=== PATIENT | female | born 1980 | race Hispanic/Latino ===

== ENCOUNTER 2019-11-17 12:00 | Inpatient (IN) ==
[2019-11-17] MEDS ORDERED: AMBIEN PO PRN (12:18)
[2019-11-17] MEDS ORDERED: PEPCID IV PRN (12:18)
[2019-11-17] MEDS ORDERED: TYLENOL PO PRN (12:18)
[2019-11-17] MEDS ORDERED: AMPICILLIN 2 GM in NS 100 ML IV ONE ×4 (12:18)
[2019-11-17] MEDS ORDERED: ZOFRAN IV PRN (12:18)
[2019-11-17] MEDS ORDERED: BRETHINE SUBQ PRN (12:18)
[2019-11-17] MEDS ORDERED: LR 1,000 ML IV ONE (12:18)
[2019-11-17] MEDS ORDERED: PEPCID PO ONE (12:18)
[2019-11-17] MEDS ORDERED: PEPCID PO PRN (12:18)
[2019-11-17] MEDS ORDERED: LR 500 ML IV ONE (12:18)
[2019-11-17] MEDS ORDERED: REGLAN PO ONE (12:18)
[2019-11-17] MEDS ORDERED: STADOL IV PRN ×2 (12:18)
[2019-11-17] MEDS ORDERED: CYTOTEC VAG ONE (12:18)
[2019-11-17] MEDS ORDERED: KEFZOL 1 GM/D5W 1 GM/50 ML IVPB IV PRN (12:18)
[2019-11-17] MEDS ORDERED: PITOCIN 30 UNITS/NS 30 UNIT/500 ML IV.SOLN IV SCH (12:30)
[2019-11-17 13:23] LABS: URINE SOURCE VOIDED
[2019-11-17 13:29] LABS: BASO# 0.03 X1000 (0.0-0.2); BASO% 0.4 % (0.0-0.8); EOS# 0.13 X1000 (0.0-0.7); EOS% 1.6 % (0.0-10.0); HEMATOCRIT 35.5 % (37.0-47.0); HEMOGLOBIN 11.7 g/dL (12.0-16.0); IMM GRAN# 0.08 X1000 (0.0-0.04); LYMPH# 1.73 X1000 (1.2-3.4); LYMPH% 21.8 % (20.5-51.1); MCH 30.4 PG (27-31); MCV 92.2 FL (81-99); MONO# 0.48 X1000 (0.11-0.59); MPV 13.5 FL (7.4-10.4); NEUT% 69.2 % (42.2-75.2); PLT 211 X1000 (130-400); RBC 3.85 XMIL (4.2-5.4); RDW 13.8 % (11.5-14.5); WBC 7.95 X1000 (4.8-10.8)
[2019-11-17 13:37] LABS: BILIRUBIN URINE NEGATIVE (NEGATIVE); BLOOD URINE NEGATIVE (NEGATIVE); COLOR YELLOW; GLUCOSE URINE NEGATIVE (NEGATIVE); KETONE URINE NEGATIVE (NEGATIVE); LEUKOCYTES URINE NEGATIVE (NEGATIVE); NITRITE URINE NEGATIVE (NEGATIVE); PROTEIN URINE 30 mg/dL (NEGATIVE); SP GRAVITY URINE 1.026; TURBIDITY URINE CLEAR (CLEAR); UROBILINOGEN URINE 3 mg/dL (NORMAL)
[2019-11-17 13:40] LABS: AGAP 15; ALBUMIN 3.1 g/dL (3.5-5.0); ALKALINE PHOSPHATASE 256 U/L (32-104); BUN 13 mg/dL (8-22); CALCIUM 9.3 mg/dL (8.8-10.2); CHLORIDE 100 mmol/L (98-107); COSMO 265; CREATININE 0.5 mg/dL (0.5-0.9); ESTIMATED GFR > 60; GLUCOSE 75 mg/dL (70-104); GOT 65 U/L (10-30); GPT 98 U/L (10-36); POTASSIUM 4.1 mmol/L (3.5-5.1); SODIUM 133 mmol/L (136-145); TCO2 18 mmol/L (25-35); TOTAL BILIRUBIN 0.66 mg/dL (0.20-1.00); TOTAL PROTEIN 6.3 g/dL (6.3-8.3)
[2019-11-17 13:47] LABS: UR AMPHETAMINES QUAL NONE DETECTED (NONE DETECT); UR BARBITUATES QUAL NONE DETECTED (NONE DETECT); UR BENZODIAZEPIN QUAL NONE DETECTED (NONE DETECT); UR CANNABINOIDS QUAL NONE DETECTED (NONE DETECT); UR COCAINE QUAL NONE DETECTED (NONE DETECT); UR METHADONE QUAL NONE DETECTED (NONE DETECT); UR OPIATES QUAL NONE DETECTED (NONE DETECT); UR OXYCODONE QUAL NONE DETECTED (NONE DETECT); UR PCP QUAL NONE DETECTED (NONE DETECT)
[2019-11-17 13:47] LABS: INR 0.89; PROTIME 12.1 Seconds (11.0-16.0)
[2019-11-17 13:48] LABS: PTT 30.4 Seconds (22.3-41.8)
[2019-11-17] MEDS: STADOL IV PRN ×3 (15:10→23:53)
[2019-11-17] MEDS ORDERED: AMPICILLIN 1 GM in NS 50 ML IV SCH (16:21)
[2019-11-17] MEDS: AMPICILLIN 1 GM in NS 50 ML IV SCH ×2 (17:01→20:56)
[2019-11-17] MEDS: CYTOTEC VAG SCH ×2 (17:45→21:40)
--- NOTE | 2019-11-17 20:22 | HISTORY AND PHYSICAL ---
HISTORY OF PRESENT ILLNESS: This is a 39-year-old G3, P2-0-0-2 at 37 weeks and 2 days with A2 gestational diabetes, suspected intrahepatic cholestasis of , advanced maternal age, history of LEEP, and late care, who presents for medical induction of labor for high suspicion of intrahepatic cholestasis of and A2 gestational diabetes. She presented to clinic yesterday with complaint of intense itching on her palms and her soles and was sent to the hospital for lab work and NST. NST was reactive;. However, her liver enzymes were elevated. She also had a right upper quadrant ultrasound that showed hepatic steatosis, but no gallbladder pathology. Her symptoms and laboratory findings are consistent with intrahepatic cholestasis of . Bile acids are still pending and can take approximately 3 days to return. [facility], Dr. Mcgarry, was consulted this a.m. regarding suspicion for ICP, and she recommended delivery. Discussed medical induction of labor with the patient, given high suspicion for intrahepatic cholestasis of and A2 gestational diabetes. She agrees to proceed. This has been complicated by A2 gestational diabetes that was diagnosed later in due to the patient's inability to have lab work completed. She also had a difficult time obtaining a glucometer to check her blood sugars regularly. She was referred to [facility], and is currently on metformin 1000 mg b.i.d. The last growth scan on November 11 had a growth of 7 pounds 14 ounces, which is considered large for gestational age. has also been complicated by GBS bacteria, bilirubin nonimmune status, ASCUS high-risk HPV Pap during , and history of LEEP. The patient elected to have a colposcopy performed at her visit regarding the ASCUS high-risk HPV Pap. She is dated by a 23-week ultrasound with an estimated due date of 12/06/2019. OBSTETRIC HISTORY: G1 equaled spontaneous vaginal delivery at 40 weeks gestation, female, 7 pounds delivery in [place], [place] (2002). G2: Spontaneous vaginal delivery at 40 weeks, female, 7 pounds 14 ounces. Denies complications, delivered in [place], [place] (2005). G3 is current . GYNECOLOGIC HISTORY: She denies any history of sexually transmitted infections. She had a Pap smear in 2019 during that was ASCUS and high-risk HPV. Per health department records, she also has a history of a LEEP procedure performed. Menarche was at age 14. PAST MEDICAL HISTORY: Advanced maternal age, A2 gestational diabetes, ICP, late to care. MEDICATIONS: Metformin 1000 mg p.o. b.i.d., vitamin p.o. daily. ALLERGIES: No known drug allergies. SOCIAL HISTORY: She denies any tobacco, alcohol, or drug use. She is Lithuanian-speaking only and requires a human resources professional during her visit. FAMILY HISTORY: Denies. PHYSICAL EXAMINATION: VITAL SIGNS: Temperature 97.4 degrees, heart rate 66, blood pressure 130/75, oxygen saturation 99% on room air. Respiratory rate 18. GENERAL APPEARANCE: Appears well, alert, no apparent distress. CARDIOVASCULAR: Regular rate and rhythm. RESPIRATORY: No respiratory distress. Clear to auscultation bilaterally. ABDOMEN: Soft, gravid, nontender. EXTREMITIES: Normal range of motion. Nontender. Mild pedal edema. : Sterile vaginal exam: 30 percent effaced/minus 3 position, soft, midposition, Williamson score of 4. Bedside ultrasound: Vertex presentation on 11/17. Estimated weight 3700 grams. LABORATORY DATA: White blood cell count 7.9, hemoglobin 11.7, hematocrit 35.5, platelets 211. Sodium 133, potassium 4.1, chloride 100.. CO2 is 18, BUN 13, creatinine 0.5, blood sugar 75. AST 65, ALT 98. PT 12.1, INR 0.9, PTT 30.4, fibrinogen 674. Urine drug screen negative. Urinalysis: Shows 3+ urobilinogen, 1+ protein. lab work: Blood type O positive, negative antibody screen. Rubella non immune, hepatitis B negative, hepatitis C negative, HIV negative, RPR negative. Urine culture, GBS, gonorrhea/chlamydia negative. Pap smear ASCUS with high-risk HPV in 2019. ASSESSMENT/PLAN: 39-year-old G3, P2-0-0-2 at 37 weeks and 2 days with A2 gestational diabetes, high suspicion for intrahepatic cholestasis of , advanced maternal age, Group B Strep bacteria, rubella nonimmune status, history of ASCUS high-risk HPV Pap in 2019, and history of LEEP procedure. 1. Will admit to Labor and Delivery and plan for medical induction secondary to intrahepatic cholestasis of and A2 gestational diabetes. At last [facility] scan, was noted to be large for gestational age with a growth of 7 pounds 14 ounces on November 11. Discussed induction on an unfavorable cervix may increase the risk of . Cervical exam with a Williamson score of 4. Discussed increased risk of shoulder dystocia given large-for- gestational-age and her A2 gestational diabetes. We will plan for cervical ripening with vaginal Cytotec. 2. We will check CBC, CMP, coags, and urinary drug screen on arrival. 3. Group B Strep bacteria. Will plan for Group B Strep prophylaxis with ampicillin. 4. Estimated weight 3700 grams, vertex presentation on ultrasound. Anticipate vaginal delivery. 5. Continuous external monitoring and tocography. Patient may have epidural if she desires. 6. She desires a bilateral tubal ligation if section is indicated. She has been counseled on the permanence and irreversibility of this procedure and that it means no more children. She agrees to proceed. 7. We will plan the hold metformin and check blood glucose every 4 hours.
[2019-11-18] MEDS ORDERED: MINERAL OIL TOP PRN (00:17)
[2019-11-18] MEDS ORDERED: XYLOCAINE-MPF 1% INJ PRN (00:17)
[2019-11-18] MEDS: AMPICILLIN 1 GM in NS 50 ML IV SCH ×5 (00:30→16:26)
[2019-11-18 02:00] LABS: HEMATOCRIT 35.7 % (37.0-47.0); HEMOGLOBIN 11.6 g/dL (12.0-16.0); LYMPH% 15.3 % (20.5-51.1); MCH 30.2 PG (27-31); MCHC 32.5 g/dL (33-37); MPV 12.9 FL (7.4-10.4); NEUT% 78.3 % (42.2-75.2); PLT 187 X1000 (130-400); RBC 3.84 XMIL (4.2-5.4); RDW 13.8 % (11.5-14.5); WBC 10.62 X1000 (4.8-10.8)
[2019-11-18 02:00] LABS: PROTEIN CREAT RATIO 0.3
[2019-11-18 02:01] LABS: BASO% 0.3 % (0.0-0.8); EOS% 0.5 % (0.0-10.0); IMM GRAN% 0.7 % (0.0-0.5); MONO% 4.9 % (1.7-9.3); NEUT# 8.33 X1000 (1.4-6.5)
[2019-11-18 02:02] LABS: AGAP 17; CHLORIDE 100 mmol/L (98-107); LDH 161 U/L (135-214); SODIUM 136 mmol/L (136-145); TCO2 19 mmol/L (25-35); URIC ACID 5.8 mg/dL (2.4-5.7)
[2019-11-18 02:03] LABS: ALB/GLOB RATIO 1.3; ALBUMIN 3.2 g/dL (3.5-5.0); ALKALINE PHOSPHATASE 259 U/L (32-104); BUN 12 mg/dL (8-22); CALCIUM 8.6 mg/dL (8.8-10.2); COSMO 271; CREATININE 0.6 mg/dL (0.5-0.9); ESTIMATED GFR > 60; GLUCOSE 79 mg/dL (70-104); TOTAL BILIRUBIN 0.97 mg/dL (0.20-1.00); TOTAL PROTEIN 5.7 g/dL (6.3-8.3)
[2019-11-18] MEDS: LR 1,000 ML IV SCH ×4 (02:03→10:41)
[2019-11-18 02:06] LABS: EOS# 0.05 X1000 (0.0-0.7); GOT 66 U/L (10-30); GPT 100 U/L (10-36); LYMPH# 1.62 X1000 (1.2-3.4); MONO# 0.52 X1000 (0.11-0.59)
[2019-11-18 02:07] LABS: BASO# 0.03 X1000 (0.0-0.2); IMM GRAN# 0.07 X1000 (0.0-0.04)
[2019-11-18] MEDS: CYTOTEC VAG SCH ×3 (02:31→18:24)
[2019-11-18] MEDS: STADOL IV PRN (02:32)
[2019-11-18 04:35] LABS: INR 0.92; PROTIME 12.4 Seconds (11.0-16.0)
[2019-11-18 04:36] LABS: PTT 29.3 Seconds (22.3-41.8)
[2019-11-18 06:20] LABS: BASO# 0.02 X1000 (0.0-0.2); BASO% 0.2 % (0.0-0.8); EOS# 0.03 X1000 (0.0-0.7); EOS% 0.3 % (0.0-10.0); HEMATOCRIT 35.2 % (37.0-47.0); HEMOGLOBIN 11.3 g/dL (12.0-16.0); IMM GRAN# 0.04 X1000 (0.0-0.04); IMM GRAN% 0.3 % (0.0-0.5); LYMPH# 1.43 X1000 (1.2-3.4); LYMPH% 12.3 % (20.5-51.1); MCH 29.8 PG (27-31); MCHC 32.1 g/dL (33-37); MCV 92.9 FL (81-99); MONO# 0.57 X1000 (0.11-0.59); MONO% 4.9 % (1.7-9.3); MPV 12.7 FL (7.4-10.4); NEUT# 9.56 X1000 (1.4-6.5); PLT 170 X1000 (130-400); RBC 3.79 XMIL (4.2-5.4); RDW 13.9 % (11.5-14.5); WBC 11.65 X1000 (4.8-10.8)
[2019-11-18 06:37] LABS: AGAP 17; ALB/GLOB RATIO 0.9; ALBUMIN 2.9 g/dL (3.5-5.0); ALKALINE PHOSPHATASE 241 U/L (32-104); BUN 10 mg/dL (8-22); CALCIUM 8.7 mg/dL (8.8-10.2); CHLORIDE 100 mmol/L (98-107); COSMO 268; CREATININE 0.5 mg/dL (0.5-0.9); ESTIMATED GFR > 60; GLUCOSE 83 mg/dL (70-104); GOT 54 U/L (10-30); GPT 82 U/L (10-36); POTASSIUM 3.6 mmol/L (3.5-5.1); SODIUM 135 mmol/L (136-145); TCO2 18 mmol/L (25-35); URIC ACID 6.2 mg/dL (2.4-5.7)
[2019-11-18] MEDS ORDERED: FENTANYL-BUPIV-NS 500 MCG-0.125% 250 ML EPIDURAL SCH (07:00)
[2019-11-18] MEDS ORDERED: NAROPIN 0.2% INJ ONE (07:00)
--- NOTE | 2019-11-18 07:02 | OB/GYN PROGRESS NOTE ---
- Subjective 39 yo at 37w3d MIOL for ICP with PreE without severe features, A2-GDM, AMA, GBS bacteriuria, ASCUS pap this , Hx LEEP, late to [facility] Patient seen and examined. She is feeling regular contractions and has received several doses of stadol without relief. She is s/p 3 doses of cytotec and now undergoing induction with pitocin. She desires an epidural at this time for pain relief. Overnight BP elevated to mostly 140-150s/80s. PreE labs showed an elevated uric acid, elevated LFTs, and a P:Cr of 0.3. Platelets have been trended since admission and were 211> 187>170 this AM at 0600. Will continue to trend and monitor for signs of PreE with severe features. She denies any headache, vision changes, chest pain, SOB, RUQ pain, N/V. FHT: 140/moderate/+accel/no decel L[place]: Q1-2 min OB Physical Exam Vital Signs - 8 hr 11/18/19 00:00 11/18/19 02:37 11/18/19 04:00 Temperature 96.7 F L 97.4 F L 97.8 F Pulse Rate 58 L 75 64 Respiratory Rate 20 18 18 Blood Pressure 144/84 143/86 127/69 O2 Sat by Pulse Oximetry 99 95 100 - CONSTITUTIONAL General Appearance: appears well, alert, mild distress (secondary to contraction pain) - HEAD, EARS, NOSE, MOUTH & THROAT HENMT: normocephalic/atraumatic - RESPIRATORY Respiratory: lungs clear, normal breath sounds, no respiratory distress - CARDIOVASCULAR Cardiovascular: regular rate, rhythm - GASTROINTESTINAL (ABDOMEN) Abdominal Exam: non tender, soft, other (gravid) - GENITOURINARY Vaginal Exam: /-2, ballotable - MUSCULOSKELETAL Extremity: normal range of motion, pedal edema (mild) DTR: knee (R): 2+ (no clonus), knee (L): 3+ (no clonus) - PSYCHIATRIC Psych/Mental Status: normal mood/affect Active Medications Generic Name Dose Route Start Last Admin Trade Name Freq PRN Reason Stop Dose Admin Acetaminophen 650 mg 11/17/19 12:18 Tylenol PO Q4-6H PRN PRN Headache Butorphanol Tartrate 2 mg 11/17/19 12:18 11/18/19 02:32 Stadol IV 2 mg Q2H PRN PRN Administration Pain (5-10 on Pain Scale) Butorphanol Tartrate 2 mg 11/17/19 12:18 Stadol IV PRN PRN Pain Butorphanol Tartrate 1 mg 11/17/19 12:18 Stadol IV Q2H PRN PRN Pain (1-4 on Pain Scale) Famotidine 20 mg 11/17/19 12:18 Pepcid IV Q12H PRN PRN GI upset or indigestion Famotidine 20 mg 11/17/19 12:18 Pepcid PO Q12H PRN PRN GI upset or indigestion Ampicillin Sodium 1 gm/ Sodium 50 mls @ 100 mls/hr 11/17/19 16:18 11/18/19 05:00 Chloride IV 100 mls/hr Q4H LAILA Administration Cefazolin Sodium/Dextrose 1 gm in 50 mls @ 100 mls/hr 11/17/19 12:18 Kefzol 1 Gm/D5w IV ONCE PRN PRN section Oxytocin/Sodium Chloride 30 unit in 500 mls @ 0 mls/hr 11/17/19 12:30 11/18/19 02:30 Pitocin 30 Units/Ns IV 2 mls/hr .Q0M LAILA Administration As Directed Lactated Ringer's 1,000 mls @ 0 mls/hr 11/18/19 01:15 11/18/19 05:18 Lr IV 125 mls/hr .Q0M LAILA Administration As Directed Fentanyl/Bupivacaine/Sodium Chlor 250 mls @ 0 mls/hr 11/18/19 07:00 Anzkxywc-Byiik-Ln 500 Mcg-0.125% EPIDURAL DIRECTED LAILA As Directed Lidocaine HCl 30 ml 11/18/19 00:17 Xylocaine-Mpf 1% INJ PRN PRN delivery Mineral Oil 30 ml 11/18/19 00:17 Mineral Oil TOP PRN PRN delivery Misoprostol 25 microgm 11/17/19 16:18 11/18/19 05:50 Cytotec VAG 11/18/19 13:46 Not Given Q4H LAILA Ondansetron HCl 4 mg 11/17/19 12:18 Zofran IV PRN PRN Nausea Ropivacaine 20 ml 11/18/19 07:00 Naropin 0.2% INJ 11/18/19 07:01 NOW ONE Terbutaline Sulfate 0.25 mg 11/17/19 12:18 Brethine SUBQ PRN PRN tachysystole/hypertonus Zolpidem Tartrate 10 mg 11/17/19 12:18 Ambien PO HS PRN PRN Sleep Laboratory Results - last 24 hr 11/17/19 11/17/19 11/17/19 00:09 00:09 00:09 WBC Cancelled RBC Cancelled Hgb Cancelled Hct Cancelled MCV Cancelled MCH Cancelled MCHC Cancelled RDW Std Deviation Cancelled Plt Count Cancelled MPV Cancelled Immature Gran % (Auto) Cancelled Neut % (Auto) Cancelled Lymph % (Auto) Cancelled Wayne % (Auto) Cancelled Eos % (Auto) Cancelled Baso % (Auto) Cancelled Immature Gran # (Auto) Cancelled Neut # (Auto) Cancelled Lymph # (Auto) Cancelled Wayne # (Auto) Cancelled Eos # (Auto) Cancelled Baso # (Auto) Cancelled Corrected WBC (Man) Cancelled PT INR PTT (Actin FS) Fibrinogen Sodium Cancelled Potassium Cancelled Chloride Cancelled Carbon Dioxide Cancelled Anion Gap Cancelled BUN Cancelled Creatinine Cancelled Estimated GFR/1.73 m2 Cancelled BUN/Creatinine Ratio Cancelled Glucose Cancelled Calculated Osmolality Cancelled Uric Acid Cancelled Calcium Cancelled Total Bilirubin Cancelled AST Cancelled ALT Cancelled Alkaline Phosphatase Cancelled Ammonia Lactate Dehydrogenase Cancelled Total Protein Cancelled Albumin Cancelled Globulin Cancelled Albumin/Globulin Ratio Cancelled Urine Source Urine Color Urine Turbidity Urine pH Ur Specific [place] Urine Protein Ur Glucose (Stick) Ur Ketones (Stick) Urine Blood Urine Nitrite Urine Bilirubin Urobilinogen Dipstick Urine Leukocytes Ur Random Creatinine U Random Total Protein Protein/Creatinin Ratio Urine Opiates Screen Ur Oxycodone Screen Ur Methadone, Qual Ur Barbiturates Screen Ur Phencyclidine Scrn Ur Amphetamines Screen U Benzodiazepines Scrn Urine Cocaine Screen U Cannabinoids Screen RPR Blood Type Antibody Screen 11/17/19 11/17/19 11/17/19 00:28 12:30 12:30 WBC RBC Hgb Hct MCV MCH MCHC RDW Std Deviation Plt Count MPV Immature Gran % (Auto) Neut % (Auto) Lymph % (Auto) Wayne % (Auto) Eos % (Auto) Baso % (Auto) Immature Gran # (Auto) Neut # (Auto) Lymph # (Auto) Wayne # (Auto) Eos # (Auto) Baso # (Auto) Corrected WBC (Man) PT INR PTT (Actin FS) Fibrinogen Sodium Potassium Chloride Carbon Dioxide Anion Gap BUN Creatinine Estimated GFR/1.73 m2 BUN/Creatinine Ratio Glucose Calculated Osmolality Uric Acid Calcium Total Bilirubin AST ALT Alkaline Phosphatase Ammonia Lactate Dehydrogenase Total Protein Albumin Globulin Albumin/Globulin Ratio Urine Source VOIDED Urine Color YELLOW Urine Turbidity CLEAR Urine pH 6.0 Ur Specific [place] 1.026 Urine Protein 30 A Ur Glucose (Stick) NEGATIVE Ur Ketones (Stick) NEGATIVE Urine Blood NEGATIVE Urine Nitrite NEGATIVE Urine Bilirubin NEGATIVE Urobilinogen Dipstick 3 A Urine Leukocytes NEGATIVE Ur Random Creatinine Cancelled U Random Total Protein Cancelled Protein/Creatinin Ratio Cancelled Urine Opiates Screen NONE DETECTED Ur Oxycodone Screen NONE DETECTED Ur Methadone, Qual NONE DETECTED Ur Barbiturates Screen NONE DETECTED Ur Phencyclidine Scrn NONE DETECTED Ur Amphetamines Screen NONE DETECTED U Benzodiazepines Scrn NONE DETECTED Urine Cocaine Screen NONE DETECTED U Cannabinoids Screen NONE DETECTED RPR Blood Type Antibody Screen 11/17/19 11/17/19 11/17/19 12:58 12:58 12:58 WBC 7.95 RBC 3.85 L Hgb 11.7 L Hct 35.5 L MCV 92.2 MCH 30.4 MCHC 33.0 RDW Std Deviation 13.8 Plt Count 211 MPV 13.5 H Immature Gran % (Auto) 1.0 H Neut % (Auto) 69.2 Lymph % (Auto) 21.8 Wayne % (Auto) 6.0 Eos % (Auto) 1.6 Baso % (Auto) 0.4 Immature Gran # (Auto) 0.08 H Neut # (Auto) 5.50 Lymph # (Auto) 1.73 Wayne # (Auto) 0.48 Eos # (Auto) 0.13 Baso # (Auto) 0.03 Corrected WBC (Man) PT INR PTT (Actin FS) Fibrinogen Sodium Potassium Chloride Carbon Dioxide Anion Gap BUN Creatinine Estimated GFR/1.73 m2 BUN/Creatinine Ratio Glucose Calculated Osmolality Uric Acid Calcium Total Bilirubin AST ALT Alkaline Phosphatase Ammonia Lactate Dehydrogenase Total Protein Albumin Globulin Albumin/Globulin Ratio Urine Source Urine Color Urine Turbidity Urine pH Ur Specific [place] Urine Protein Ur Glucose (Stick) Ur Ketones (Stick) Urine Blood Urine Nitrite Urine Bilirubin Urobilinogen Dipstick Urine Leukocytes Ur Random Creatinine U Random Total Protein Protein/Creatinin Ratio Urine Opiates Screen Ur Oxycodone Screen Ur Methadone, Qual Ur Barbiturates Screen Ur Phencyclidine Scrn Ur Amphetamines Screen U Benzodiazepines Scrn Urine Cocaine Screen U Cannabinoids Screen RPR NON-REACTIVE Blood Type O POSITIVE Antibody Screen NEGATIVE 11/17/19 11/17/19 11/18/19 12:58 12:58 00:09 WBC 10.62 RBC 3.84 L Hgb 11.6 L Hct 35.7 L MCV 93.0 MCH 30.2 MCHC 32.5 L RDW Std Deviation 13.8 Plt Count 187 MPV 12.9 H Immature Gran % (Auto) 0.7 H Neut % (Auto) 78.3 H Lymph % (Auto) 15.3 L Wayne % (Auto) 4.9 Eos % (Auto) 0.5 Baso % (Auto) 0.3 Immature Gran # (Auto) 0.07 H Neut # (Auto) 8.33 H Lymph # (Auto) 1.62 Wayne # (Auto) 0.52 Eos # (Auto) 0.05 Baso # (Auto) 0.03 Corrected WBC (Man) PT 12.1 INR 0.89 PTT (Actin FS) 30.4 Fibrinogen 674.0 H Sodium 133 L Potassium 4.1 Chloride 100 Carbon Dioxide 18 L Anion Gap 15 BUN 13 Creatinine 0.5 Estimated GFR/1.73 m2 > 60 BUN/Creatinine Ratio 26 Glucose 75 Calculated Osmolality 265 Uric Acid Calcium 9.3 Total Bilirubin 0.66 AST 65 H ALT 98 H Alkaline Phosphatase 256 H Ammonia Lactate Dehydrogenase Total Protein 6.3 Albumin 3.1 L Globulin 3.2 Albumin/Globulin Ratio 1.0 Urine Source Urine Color Urine Turbidity Urine pH Ur Specific [place] Urine Protein Ur Glucose (Stick) Ur Ketones (Stick) Urine Blood Urine Nitrite Urine Bilirubin Urobilinogen Dipstick Urine Leukocytes Ur Random Creatinine U Random Total Protein Protein/Creatinin Ratio Urine Opiates Screen Ur Oxycodone Screen Ur Methadone, Qual Ur Barbiturates Screen Ur Phencyclidine Scrn Ur Amphetamines Screen U Benzodiazepines Scrn Urine Cocaine Screen U Cannabinoids Screen RPR Blood Type Antibody Screen 11/18/19 11/18/19 11/18/19 00:09 00:28 03:14 WBC RBC Hgb Hct MCV MCH MCHC RDW Std Deviation Plt Count MPV Immature Gran % (Auto) Neut % (Auto) Lymph % (Auto) Wayne % (Auto) Eos % (Auto) Baso % (Auto) Immature Gran # (Auto) Neut # (Auto) Lymph # (Auto) Wayne # (Auto) Eos # (Auto) Baso # (Auto) Corrected WBC (Man) PT INR PTT (Actin FS) Fibrinogen Sodium 136 Potassium 4.0 Chloride 100 Carbon Dioxide 19 L Anion Gap 17 BUN 12 Creatinine 0.6 Estimated GFR/1.73 m2 > 60 BUN/Creatinine Ratio 20 Glucose 79 Calculated Osmolality 271 Uric Acid 5.8 H Calcium 8.6 L Total Bilirubin 0.97 AST 66 H ALT 100 H Alkaline Phosphatase 259 H Ammonia 28 Lactate Dehydrogenase 161 Total Protein 5.7 L Albumin 3.2 L Globulin 2.5 Albumin/Globulin Ratio 1.3 Urine Source Urine Color Urine Turbidity Urine pH Ur Specific [place] Urine Protein Ur Glucose (Stick) Ur Ketones (Stick) Urine Blood Urine Nitrite Urine Bilirubin Urobilinogen Dipstick Urine Leukocytes Ur Random Creatinine 80.0 H U Random Total Protein 26.0 Protein/Creatinin Ratio 0.3 Urine Opiates Screen Ur Oxycodone Screen Ur Methadone, Qual Ur Barbiturates Screen Ur Phencyclidine Scrn Ur Amphetamines Screen U Benzodiazepines Scrn Urine Cocaine Screen U Cannabinoids Screen RPR Blood Type Antibody Screen 11/18/19 11/18/19 11/18/19 03:14 05:52 05:52 WBC 11.65 H RBC 3.79 L Hgb 11.3 L Hct 35.2 L MCV 92.9 MCH 29.8 MCHC 32.1 L RDW Std Deviation 13.9 Plt Count 170 MPV 12.7 H Immature Gran % (Auto) 0.3 Neut % (Auto) 82.0 H Lymph % (Auto) 12.3 L Wayne % (Auto) 4.9 Eos % (Auto) 0.3 Baso % (Auto) 0.2 Immature Gran # (Auto) 0.04 Neut # (Auto) 9.56 H Lymph # (Auto) 1.43 Wayne # (Auto) 0.57 Eos # (Auto) 0.03 Baso # (Auto) 0.02 Corrected WBC (Man) PT 12.4 INR 0.92 PTT (Actin FS) 29.3 Fibrinogen 592.0 H Sodium 135 L Potassium 3.6 Chloride 100 Carbon Dioxide 18 L Anion Gap 17 BUN 10 Creatinine 0.5 Estimated GFR/1.73 m2 > 60 BUN/Creatinine Ratio 20 Glucose 83 Calculated Osmolality 268 Uric Acid 6.2 H Calcium 8.7 L Total Bilirubin 1.10 H AST 54 H ALT 82 H Alkaline Phosphatase 241 H Ammonia Lactate Dehydrogenase Total Protein 6.0 L Albumin 2.9 L Globulin 3.1 Albumin/Globulin Ratio 0.9 Urine Source Urine Color Urine Turbidity Urine pH Ur Specific [place] Urine Protein Ur Glucose (Stick) Ur Ketones (Stick) Urine Blood Urine Nitrite Urine Bilirubin Urobilinogen Dipstick Urine Leukocytes Ur Random Creatinine U Random Total Protein Protein/Creatinin Ratio Urine Opiates Screen Ur Oxycodone Screen Ur Methadone, Qual Ur Barbiturates Screen Ur Phencyclidine Scrn Ur Amphetamines Screen U Benzodiazepines Scrn Urine Cocaine Screen U Cannabinoids Screen RPR Blood Type Antibody Screen OB Assessment & Plan (1) Intrahepatic cholestasis of in third trimester Status: Acute Plan: 39 yo at 37w3d MIOL for ICP with PreE without severe features, A2-GDM, AMA,GBS bacteriuria, ASCUS pap this , Hx LEEP, late to [facility] 1. MF status reassuring 2. Patient desires epidural at this time 3. Will attempt AROM when station lower. SVE: 5/80/-2 4. Continue to trend PreE labs for dropping platelets 5. Monitor BP closely for symptoms of PreE with severe features 6. Ampicillin for GBS bacteriuria
[2019-11-18] MEDS ORDERED: EPHEDRINE IV ONE ×2 (08:13→08:32)
[2019-11-18] MEDS ORDERED: SODIUM CHLORIDE 0.9% 10 ML ONE (08:15)
--- NOTE | 2019-11-18 10:09 | OB/GYN PROGRESS NOTE ---
- Subjective Called to patient's room due to prolonged decel during pitocin induction. FHT prior to decel 170/minimal variability/no accel/recurrent decel. Pitocin turned off, maternal re-positioning performed, and maternal O2 placed. Decel resolved with baseline of 160/moderate variability/no accel/recurrent decel. AROM performed to try and resolve this pattern. AROM performed at 0951 with clear fluid and head well applied to cervix. SVE /-2. FHT resolved with baseline 160/minimal variability/no accel/no decel. [place] Q2 minutes. Discussed FHT with patient via lang interpreter phone. Discussed if baby shows further signs of distress, will recommend c/s. Discussed R/B/A to . Risks include but are not limited to bleeding, infection, damage to surrounding organs, possible need for blood transfusion, possible need for re-operation, increased risk of VTE and even . She voiced understanding. Also discussed if c/s recommended, she desires BTL for pp contraception. This has been extensively discussed during clinic visits and she understands that it is permanent, irreversible, and means no more children. Consent signed. OB Physical Exam Vital Signs - 8 hr 11/18/19 02:37 11/18/19 04:00 11/18/19 08:00 Temperature 97.4 F L 97.8 F 97.7 F Pulse Rate 75 64 70 Respiratory Rate 18 18 18 Blood Pressure 143/86 127/69 123/74 O2 Sat by Pulse Oximetry 95 100 99 - CONSTITUTIONAL General Appearance: appears well, alert, no apparent distress - RESPIRATORY Respiratory: no respiratory distress - CARDIOVASCULAR Cardiovascular: regular rate, rhythm - GASTROINTESTINAL (ABDOMEN) Abdominal Exam: non tender, soft, other (gravid) - GENITOURINARY Vaginal Exam: /-2 - PSYCHIATRIC Psych/Mental Status: normal mood/affect Active Medications Generic Name Dose Route Start Last Admin Trade Name Freq PRN Reason Stop Dose Admin Acetaminophen 650 mg 11/17/19 12:18 Tylenol PO Q4-6H PRN PRN Headache Butorphanol Tartrate 2 mg 11/17/19 12:18 11/18/19 02:32 Stadol IV 2 mg Q2H PRN PRN Administration Pain (5-10 on Pain Scale) Butorphanol Tartrate 2 mg 11/17/19 12:18 Stadol IV PRN PRN Pain Butorphanol Tartrate 1 mg 11/17/19 12:18 Stadol IV Q2H PRN PRN Pain (1-4 on Pain Scale) Famotidine 20 mg 11/17/19 12:18 Pepcid IV Q12H PRN PRN GI upset or indigestion Famotidine 20 mg 11/17/19 12:18 Pepcid PO Q12H PRN PRN GI upset or indigestion Ampicillin Sodium 1 gm/ Sodium 50 mls @ 100 mls/hr 11/17/19 16:18 11/18/19 08:10 Chloride IV 100 mls/hr Q4H LAILA Administration Cefazolin Sodium/Dextrose 1 gm in 50 mls @ 100 mls/hr 11/17/19 12:18 Kefzol 1 Gm/D5w IV ONCE PRN PRN section Oxytocin/Sodium Chloride 30 unit in 500 mls @ 0 mls/hr 11/17/19 12:30 11/18/19 02:30 Pitocin 30 Units/Ns IV 2 mls/hr .Q0M LAILA Administration As Directed Lactated Ringer's 1,000 mls @ 0 mls/hr 11/18/19 01:15 11/18/19 07:21 Lr IV 125 mls/hr .Q0M LAILA Administration As Directed Fentanyl/Bupivacaine/Sodium Chlor 250 mls @ 0 mls/hr 11/18/19 07:00 11/18/19 07:55 Fwbsoghh-Upggv-Ms 500 Mcg-0.125% EPIDURAL 10 mls/hr DIRECTED LAILA Administration As Directed Lidocaine HCl 30 ml 11/18/19 00:17 Xylocaine-Mpf 1% INJ PRN PRN delivery Mineral Oil 30 ml 11/18/19 00:17 Mineral Oil TOP PRN PRN delivery Misoprostol 25 microgm 11/17/19 16:18 11/18/19 05:50 Cytotec VAG 11/18/19 13:46 Not Given Q4H LAILA Ondansetron HCl 4 mg 11/17/19 12:18 Zofran IV PRN PRN Nausea Terbutaline Sulfate 0.25 mg 11/17/19 12:18 Brethine SUBQ PRN PRN tachysystole/hypertonus Zolpidem Tartrate 10 mg 11/17/19 12:18 Ambien PO HS PRN PRN Sleep Laboratory Results - last 24 hr 11/17/19 11/17/19 11/17/19 00:09 00:09 00:09 WBC Cancelled RBC Cancelled Hgb Cancelled Hct Cancelled MCV Cancelled MCH Cancelled MCHC Cancelled RDW Std Deviation Cancelled Plt Count Cancelled MPV Cancelled Immature Gran % (Auto) Cancelled Neut % (Auto) Cancelled Lymph % (Auto) Cancelled Garrett % (Auto) Cancelled Eos % (Auto) Cancelled Baso % (Auto) Cancelled Immature Gran # (Auto) Cancelled Neut # (Auto) Cancelled Lymph # (Auto) Cancelled Garrett # (Auto) Cancelled Eos # (Auto) Cancelled Baso # (Auto) Cancelled Corrected WBC (Man) Cancelled PT INR PTT (Actin FS) Fibrinogen Sodium Cancelled Potassium Cancelled Chloride Cancelled Carbon Dioxide Cancelled Anion Gap Cancelled BUN Cancelled Creatinine Cancelled Estimated GFR/1.73 m2 Cancelled BUN/Creatinine Ratio Cancelled Glucose Cancelled Calculated Osmolality Cancelled Uric Acid Cancelled Calcium Cancelled Total Bilirubin Cancelled AST Cancelled ALT Cancelled Alkaline Phosphatase Cancelled Ammonia Lactate Dehydrogenase Cancelled Total Protein Cancelled Albumin Cancelled Globulin Cancelled Albumin/Globulin Ratio Cancelled Urine Source Urine Color Urine Turbidity Urine pH Ur Specific [place] Urine Protein Ur Glucose (Stick) Ur Ketones (Stick) Urine Blood Urine Nitrite Urine Bilirubin Urobilinogen Dipstick Urine Leukocytes Ur Random Creatinine U Random Total Protein Protein/Creatinin Ratio Urine Opiates Screen Ur Oxycodone Screen Ur Methadone, Qual Ur Barbiturates Screen Ur Phencyclidine Scrn Ur Amphetamines Screen U Benzodiazepines Scrn Urine Cocaine Screen U Cannabinoids Screen RPR Blood Type Antibody Screen 11/17/19 11/17/19 11/17/19 00:28 12:30 12:30 WBC RBC Hgb Hct MCV MCH MCHC RDW Std Deviation Plt Count MPV Immature Gran % (Auto) Neut % (Auto) Lymph % (Auto) Garrett % (Auto) Eos % (Auto) Baso % (Auto) Immature Gran # (Auto) Neut # (Auto) Lymph # (Auto) Garrett # (Auto) Eos # (Auto) Baso # (Auto) Corrected WBC (Man) PT INR PTT (Actin FS) Fibrinogen Sodium Potassium Chloride Carbon Dioxide Anion Gap BUN Creatinine Estimated GFR/1.73 m2 BUN/Creatinine Ratio Glucose Calculated Osmolality Uric Acid Calcium Total Bilirubin AST ALT Alkaline Phosphatase Ammonia Lactate Dehydrogenase Total Protein Albumin Globulin Albumin/Globulin Ratio Urine Source VOIDED Urine Color YELLOW Urine Turbidity CLEAR Urine pH 6.0 Ur Specific [place] 1.026 Urine Protein 30 A Ur Glucose (Stick) NEGATIVE Ur Ketones (Stick) NEGATIVE Urine Blood NEGATIVE Urine Nitrite NEGATIVE Urine Bilirubin NEGATIVE Urobilinogen Dipstick 3 A Urine Leukocytes NEGATIVE Ur Random Creatinine Cancelled U Random Total Protein Cancelled Protein/Creatinin Ratio Cancelled Urine Opiates Screen NONE DETECTED Ur Oxycodone Screen NONE DETECTED Ur Methadone, Qual NONE DETECTED Ur Barbiturates Screen NONE DETECTED Ur Phencyclidine Scrn NONE DETECTED Ur Amphetamines Screen NONE DETECTED U Benzodiazepines Scrn NONE DETECTED Urine Cocaine Screen NONE DETECTED U Cannabinoids Screen NONE DETECTED RPR Blood Type Antibody Screen 11/17/19 11/17/19 11/17/19 12:58 12:58 12:58 WBC 7.95 RBC 3.85 L Hgb 11.7 L Hct 35.5 L MCV 92.2 MCH 30.4 MCHC 33.0 RDW Std Deviation 13.8 Plt Count 211 MPV 13.5 H Immature Gran % (Auto) 1.0 H Neut % (Auto) 69.2 Lymph % (Auto) 21.8 Garrett % (Auto) 6.0 Eos % (Auto) 1.6 Baso % (Auto) 0.4 Immature Gran # (Auto) 0.08 H Neut # (Auto) 5.50 Lymph # (Auto) 1.73 Garrett # (Auto) 0.48 Eos # (Auto) 0.13 Baso # (Auto) 0.03 Corrected WBC (Man) PT INR PTT (Actin FS) Fibrinogen Sodium Potassium Chloride Carbon Dioxide Anion Gap BUN Creatinine Estimated GFR/1.73 m2 BUN/Creatinine Ratio Glucose Calculated Osmolality Uric Acid Calcium Total Bilirubin AST ALT Alkaline Phosphatase Ammonia Lactate Dehydrogenase Total Protein Albumin Globulin Albumin/Globulin Ratio Urine Source Urine Color Urine Turbidity Urine pH Ur Specific [place] Urine Protein Ur Glucose (Stick) Ur Ketones (Stick) Urine Blood Urine Nitrite Urine Bilirubin Urobilinogen Dipstick Urine Leukocytes Ur Random Creatinine U Random Total Protein Protein/Creatinin Ratio Urine Opiates Screen Ur Oxycodone Screen Ur Methadone, Qual Ur Barbiturates Screen Ur Phencyclidine Scrn Ur Amphetamines Screen U Benzodiazepines Scrn Urine Cocaine Screen U Cannabinoids Screen RPR NON-REACTIVE Blood Type O POSITIVE Antibody Screen NEGATIVE 12/11/17/19 11/18/19 12:58 12:58 00:09 WBC 10.62 RBC 3.84 L Hgb 11.6 L Hct 35.7 L MCV 93.0 MCH 30.2 MCHC 32.5 L RDW Std Deviation 13.8 Plt Count 187 MPV 12.9 H Immature Gran % (Auto) 0.7 H Neut % (Auto) 78.3 H Lymph % (Auto) 15.3 L Garrett % (Auto) 4.9 Eos % (Auto) 0.5 Baso % (Auto) 0.3 Immature Gran # (Auto) 0.07 H Neut # (Auto) 8.33 H Lymph # (Auto) 1.62 Garrett # (Auto) 0.52 Eos # (Auto) 0.05 Baso # (Auto) 0.03 Corrected WBC (Man) PT 12.1 INR 0.89 PTT (Actin FS) 30.4 Fibrinogen 674.0 H Sodium 133 L Potassium 4.1 Chloride 100 Carbon Dioxide 18 L Anion Gap 15 BUN 13 Creatinine 0.5 Estimated GFR/1.73 m2 > 60 BUN/Creatinine Ratio 26 Glucose 75 Calculated Osmolality 265 Uric Acid Calcium 9.3 Total Bilirubin 0.66 AST 65 H ALT 98 H Alkaline Phosphatase 256 H Ammonia Lactate Dehydrogenase Total Protein 6.3 Albumin 3.1 L Globulin 3.2 Albumin/Globulin Ratio 1.0 Urine Source Urine Color Urine Turbidity Urine pH Ur Specific [place] Urine Protein Ur Glucose (Stick) Ur Ketones (Stick) Urine Blood Urine Nitrite Urine Bilirubin Urobilinogen Dipstick Urine Leukocytes Ur Random Creatinine U Random Total Protein Protein/Creatinin Ratio Urine Opiates Screen Ur Oxycodone Screen Ur Methadone, Qual Ur Barbiturates Screen Ur Phencyclidine Scrn Ur Amphetamines Screen U Benzodiazepines Scrn Urine Cocaine Screen U Cannabinoids Screen RPR Blood Type Antibody Screen 11/18/19 11/18/19 11/18/19 00:09 00:28 03:14 WBC RBC Hgb Hct MCV MCH MCHC RDW Std Deviation Plt Count MPV Immature Gran % (Auto) Neut % (Auto) Lymph % (Auto) Garrett % (Auto) Eos % (Auto) Baso % (Auto) Immature Gran # (Auto) Neut # (Auto) Lymph # (Auto) Garrett # (Auto) Eos # (Auto) Baso # (Auto) Corrected WBC (Man) PT INR PTT (Actin FS) Fibrinogen Sodium 136 Potassium 4.0 Chloride 100 Carbon Dioxide 19 L Anion Gap 17 BUN 12 Creatinine 0.6 Estimated GFR/1.73 m2 > 60 BUN/Creatinine Ratio 20 Glucose 79 Calculated Osmolality 271 Uric Acid 5.8 H Calcium 8.6 L Total Bilirubin 0.97 AST 66 H ALT 100 H Alkaline Phosphatase 259 H Ammonia 28 Lactate Dehydrogenase 161 Total Protein 5.7 L Albumin 3.2 L Globulin 2.5 Albumin/Globulin Ratio 1.3 Urine Source Urine Color Urine Turbidity Urine pH Ur Specific [place] Urine Protein Ur Glucose (Stick) Ur Ketones (Stick) Urine Blood Urine Nitrite Urine Bilirubin Urobilinogen Dipstick Urine Leukocytes Ur Random Creatinine 80.0 H U Random Total Protein 26.0 Protein/Creatinin Ratio 0.3 Urine Opiates Screen Ur Oxycodone Screen Ur Methadone, Qual Ur Barbiturates Screen Ur Phencyclidine Scrn Ur Amphetamines Screen U Benzodiazepines Scrn Urine Cocaine Screen U Cannabinoids Screen RPR Blood Type Antibody Screen 11/18/19 11/18/19 11/18/19 03:14 05:52 05:52 WBC 11.65 H RBC 3.79 L Hgb 11.3 L Hct 35.2 L MCV 92.9 MCH 29.8 MCHC 32.1 L RDW Std Deviation 13.9 Plt Count 170 MPV 12.7 H Immature Gran % (Auto) 0.3 Neut % (Auto) 82.0 H Lymph % (Auto) 12.3 L Garrett % (Auto) 4.9 Eos % (Auto) 0.3 Baso % (Auto) 0.2 Immature Gran # (Auto) 0.04 Neut # (Auto) 9.56 H Lymph # (Auto) 1.43 Garrett # (Auto) 0.57 Eos # (Auto) 0.03 Baso # (Auto) 0.02 Corrected WBC (Man) PT 12.4 INR 0.92 PTT (Actin FS) 29.3 Fibrinogen 592.0 H Sodium 135 L Potassium 3.6 Chloride 100 Carbon Dioxide 18 L Anion Gap 17 BUN 10 Creatinine 0.5 Estimated GFR/1.73 m2 > 60 BUN/Creatinine Ratio 20 Glucose 83 Calculated Osmolality 268 Uric Acid 6.2 H Calcium 8.7 L Total Bilirubin 1.10 H AST 54 H ALT 82 H Alkaline Phosphatase 241 H Ammonia Lactate Dehydrogenase Total Protein 6.0 L Albumin 2.9 L Globulin 3.1 Albumin/Globulin Ratio 0.9 Urine Source Urine Color Urine Turbidity Urine pH Ur Specific [place] Urine Protein Ur Glucose (Stick) Ur Ketones (Stick) Urine Blood Urine Nitrite Urine Bilirubin Urobilinogen Dipstick Urine Leukocytes Ur Random Creatinine U Random Total Protein Protein/Creatinin Ratio Urine Opiates Screen Ur Oxycodone Screen Ur Methadone, Qual Ur Barbiturates Screen Ur Phencyclidine Scrn Ur Amphetamines Screen U Benzodiazepines Scrn Urine Cocaine Screen U Cannabinoids Screen RPR Blood Type Antibody Screen
[2019-11-18 12:31] LABS: BASO# 0.02 X1000 (0.0-0.2); BASO% 0.1 % (0.0-0.8); EOS# 0.01 X1000 (0.0-0.7); EOS% 0.1 % (0.0-10.0); HEMATOCRIT 34.5 % (37.0-47.0); HEMOGLOBIN 11.2 g/dL (12.0-16.0); IMM GRAN# 0.06 X1000 (0.0-0.04); IMM GRAN% 0.4 % (0.0-0.5); LYMPH# 1.19 X1000 (1.2-3.4); LYMPH% 8.3 % (20.5-51.1); MCHC 32.5 g/dL (33-37); MCV 92.5 FL (81-99); MONO# 0.69 X1000 (0.11-0.59); MONO% 4.8 % (1.7-9.3); MPV 13.3 FL (7.4-10.4); NEUT# 12.35 X1000 (1.4-6.5); NEUT% 86.3 % (42.2-75.2); PLT 183 X1000 (130-400); RBC 3.73 XMIL (4.2-5.4); RDW 13.9 % (11.5-14.5); WBC 14.32 X1000 (4.8-10.8)
[2019-11-18] MEDS ORDERED: KEFZOL 2 GM/D5W 2 GM/50 ML IVPB IV ONE (12:55)
[2019-11-18] MEDS ORDERED: REGLAN PO ONE (12:57)
[2019-11-18] MEDS ORDERED: BICITRA PO ONE (12:57)
[2019-11-18 12:59] LABS: AGAP 17; ALBUMIN 2.8 g/dL (3.5-5.0); ALKALINE PHOSPHATASE 236 U/L (32-104); BUN 11 mg/dL (8-22); CALCIUM 8.7 mg/dL (8.8-10.2); CHLORIDE 99 mmol/L (98-107); COSMO 267; CREATININE 0.7 mg/dL (0.5-0.9); ESTIMATED GFR > 60; GLUCOSE 94 mg/dL (70-104); GOT 45 U/L (10-30); GPT 71 U/L (10-36); POTASSIUM 3.7 mmol/L (3.5-5.1); SODIUM 134 mmol/L (136-145); TCO2 18 mmol/L (25-35); TOTAL BILIRUBIN 1.29 mg/dL (0.20-1.00); TOTAL PROTEIN 5.7 g/dL (6.3-8.3); URIC ACID 6.7 mg/dL (2.4-5.7)
[2019-11-18] MEDS ORDERED: ZITHROMAX 500 MG/NS 500 MG/250 ML IVPB IV ONE (12:59)
[2019-11-18] MEDS ORDERED: NAROPIN 0.5% INJ ONE (13:00)
[2019-11-18] MEDS ORDERED: PITOCIN ONE ×2 (13:11→14:19)
[2019-11-18] MEDS ORDERED: EPHEDRINE ONE (13:11)
--- NOTE | 2019-11-18 13:11 | OB/GYN PROGRESS NOTE ---
- Subjective Patient seen and examined. SVE 9/80/-1, no cervical change in 1 hour. Fetus has been unable to tolerate pitocin. Attempt made during cervical exam to reduce cervix with maternal pushing and this was unsuccessful. heart tracings did not tolerate maternal pushing effort and responded with a prolonged deceleration. Discussed findings with patient and recommended proceeding with 1 LTCS due to NRFHTs and failure to progress. She agrees to proceed. She also desires a BTL to be performed for PP contraception and has been extensively counseled on it. Consents have been signed. All questions answered. Will give Ancef 2g IV x1 and Azithromycin 500mg IV x 1 prior to skin incision. Anesthesia notified. Physician Scribe requested at delivery. OB Physical Exam Vital Signs - 8 hr 11/18/19 08:00 Temperature 97.7 F Pulse Rate 70 Respiratory Rate 18 Blood Pressure 123/74 O2 Sat by Pulse Oximetry 99 - CONSTITUTIONAL General Appearance: appears well, alert, no apparent distress - HEAD, EARS, NOSE, MOUTH & THROAT HENMT: normocephalic/atraumatic - RESPIRATORY Respiratory: lungs clear, no respiratory distress - CARDIOVASCULAR Cardiovascular: regular rate, rhythm - GASTROINTESTINAL (ABDOMEN) Abdominal Exam: non tender, soft, other (gravid) - MUSCULOSKELETAL Extremity: non-tender, pedal edema - PSYCHIATRIC Psych/Mental Status: normal mood/affect Active Medications Generic Name Dose Route Start Last Admin Trade Name Freq PRN Reason Stop Dose Admin Acetaminophen 650 mg 11/17/19 12:18 Tylenol PO Q4-6H PRN PRN Headache Butorphanol Tartrate 2 mg 11/17/19 12:18 11/18/19 02:32 Stadol IV 2 mg Q2H PRN PRN Administration Pain (5-10 on Pain Scale) Butorphanol Tartrate 2 mg 11/17/19 12:18 Stadol IV PRN PRN Pain Butorphanol Tartrate 1 mg 11/17/19 12:18 Stadol IV Q2H PRN PRN Pain (1-4 on Pain Scale) Citric Acid/Sodium Citrate 30 ml 11/18/19 12:57 Bicitra PO 11/18/19 12:58 NOW ONE Famotidine 20 mg 11/17/19 12:18 Pepcid IV Q12H PRN PRN GI upset or indigestion Famotidine 20 mg 11/17/19 12:18 Pepcid PO Q12H PRN PRN GI upset or indigestion Ampicillin Sodium 1 gm/ Sodium 50 mls @ 100 mls/hr 11/17/19 16:18 11/18/19 0 8:10 Chloride IV 100 mls/hr Q4H LAILA Administration Cefazolin Sodium/Dextrose 1 gm in 50 mls @ 100 mls/hr 11/17/19 12:18 Kefzol 1 Gm/D5w IV ONCE PRN PRN section Oxytocin/Sodium Chloride 30 unit in 500 mls @ 0 mls/hr 11/17/19 12:30 11/18/19 02:30 Pitocin 30 Units/Ns IV 2 mls/hr .Q0M LAILA Administration As Directed Lactated Ringer's 1,000 mls @ 0 mls/hr 11/18/19 01:15 11/18/19 10:41 Lr IV 125 mls/hr .Q0M LAILA Administration As Directed Fentanyl/Bupivacaine/Sodium Chlor 250 mls @ 0 mls/hr 11/18/19 07:00 11/18/19 07:55 Uixhzemw-Muerj-Te 500 Mcg-0.125% EPIDURAL 10 mls/hr DIRECTED LAILA Administration As Directed Cefazolin Sodium/Dextrose 2 gm in 50 mls @ 50 mls/hr 11/18/19 12:55 Kefzol 2 Gm/D5w IV 11/18/19 13:54 NOW ONE Azithromycin 500 mg in 250 mls @ 250 mls/hr 11/18/19 12:59 Zithromax 500 Mg/Ns IV 11/18/19 13:58 NOW ONE Lidocaine HCl 30 ml 11/18/19 00:17 Xylocaine-Mpf 1% INJ PRN PRN delivery Metoclopramide HCl 10 mg 11/18/19 12:57 Reglan PO 11/18/19 12:58 NOW ONE Mineral Oil 30 ml 11/18/19 00:17 Mineral Oil TOP PRN PRN delivery Misoprostol 25 microgm 11/17/19 16:18 11/18/19 05:50 Cytotec VAG 11/18/19 13:46 Not Given Q4H LAILA Ondansetron HCl 4 mg 11/17/19 12:18 Zofran IV PRN PRN Nausea Ropivacaine 30 ml 11/18/19 13:00 Naropin 0.5% INJ 11/18/19 13:01 NOW ONE Terbutaline Sulfate 0.25 mg 11/17/19 12:18 Brethine SUBQ PRN PRN tachysystole/hypertonus Zolpidem Tartrate 10 mg 11/17/19 12:18 Ambien PO HS PRN PRN Sleep Laboratory Results - last 24 hr 11/17/19 11/17/19 11/17/19 00:09 00:09 00:09 WBC Cancelled RBC Cancelled Hgb Cancelled Hct Cancelled MCV Cancelled MCH Cancelled MCHC Cancelled RDW Std Deviation Cancelled Plt Count Cancelled MPV Cancelled Immature Gran % (Auto) Cancelled Neut % (Auto) Cancelled Lymph % (Auto) Cancelled [place] % (Auto) Cancelled Eos % (Auto) Cancelled Baso % (Auto) Cancelled Immature Gran # (Auto) Cancelled Neut # (Auto) Cancelled Lymph # (Auto) Cancelled [place] # (Auto) Cancelled Eos # (Auto) Cancelled Baso # (Auto) Cancelled Corrected WBC (Man) Cancelled PT INR PTT (Actin FS) Fibrinogen Sodium Cancelled Potassium Cancelled Chloride Cancelled Carbon Dioxide Cancelled Anion Gap Cancelled BUN Cancelled Creatinine Cancelled Estimated GFR/1.73 m2 Cancelled BUN/Creatinine Ratio Cancelled Glucose Cancelled Calculated Osmolality Cancelled Uric Acid Cancelled Calcium Cancelled Total Bilirubin Cancelled AST Cancelled ALT Cancelled Alkaline Phosphatase Cancelled Ammonia Lactate Dehydrogenase Cancelled Total Protein Cancelled Albumin Cancelled Globulin Cancelled Albumin/Globulin Ratio Cancelled Urine Source Urine Color Urine Turbidity Urine pH Ur Specific [place] Urine Protein Ur Glucose (Stick) Ur Ketones (Stick) Urine Blood Urine Nitrite Urine Bilirubin Urobilinogen Dipstick Urine Leukocytes Ur Random Creatinine U Random Total Protein Protein/Creatinin Ratio Urine Opiates Screen Ur Oxycodone Screen Ur Methadone, Qual Ur Barbiturates Screen Ur Phencyclidine Scrn Ur Amphetamines Screen U Benzodiazepines Scrn Urine Cocaine Screen U Cannabinoids Screen RPR Blood Type Antibody Screen 11/17/19 11/17/19 11/17/19 00:28 12:30 12:30 WBC RBC Hgb Hct MCV MCH MCHC RDW Std Deviation Plt Count MPV Immature Gran % (Auto) Neut % (Auto) Lymph % (Auto) [place] % (Auto) Eos % (Auto) Baso % (Auto) Immature Gran # (Auto) Neut # (Auto) Lymph # (Auto) [place] # (Auto) Eos # (Auto) Baso # (Auto) Corrected WBC (Man) PT INR PTT (Actin FS) Fibrinogen Sodium Potassium Chloride Carbon Dioxide Anion Gap BUN Creatinine Estimated GFR/1.73 m2 BUN/Creatinine Ratio Glucose Calculated Osmolality Uric Acid Calcium Total Bilirubin AST ALT Alkaline Phosphatase Ammonia Lactate Dehydrogenase Total Protein Albumin Globulin Albumin/Globulin Ratio Urine Source VOIDED Urine Color YELLOW Urine Turbidity CLEAR Urine pH 6.0 Ur Specific [place] 1.026 Urine Protein 30 A Ur Glucose (Stick) NEGATIVE Ur Ketones (Stick) NEGATIVE Urine Blood NEGATIVE Urine Nitrite NEGATIVE Urine Bilirubin NEGATIVE Urobilinogen Dipstick 3 A Urine Leukocytes NEGATIVE Ur Random Creatinine Cancelled U Random Total Protein Cancelled Protein/Creatinin Ratio Cancelled Urine Opiates Screen NONE DETECTED Ur Oxycodone Screen NONE DETECTED Ur Methadone, Qual NONE DETECTED Ur Barbiturates Screen NONE DETECTED Ur Phencyclidine Scrn NONE DETECTED Ur Amphetamines Screen NONE DETECTED U Benzodiazepines Scrn NONE DETECTED Urine Cocaine Screen NONE DETECTED U Cannabinoids Screen NONE DETECTED RPR Blood Type Antibody Screen 11/17/19 11/17/19 11/17/19 12:58 12:58 12:58 WBC 7.95 RBC 3.85 L Hgb 11.7 L Hct 35.5 L MCV 92.2 MCH 30.4 MCHC 33.0 RDW Std Deviation 13.8 Plt Count 211 MPV 13.5 H Immature Gran % (Auto) 1.0 H Neut % (Auto) 69.2 Lymph % (Auto) 21.8 [place] % (Auto) 6.0 Eos % (Auto) 1.6 Baso % (Auto) 0.4 Immature Gran # (Auto) 0.08 H Neut # (Auto) 5.50 Lymph # (Auto) 1.73 [place] # (Auto) 0.48 Eos # (Auto) 0.13 Baso # (Auto) 0.03 Corrected WBC (Man) PT INR PTT (Actin FS) Fibrinogen Sodium Potassium Chloride Carbon Dioxide Anion Gap BUN Creatinine Estimated GFR/1.73 m2 BUN/Creatinine Ratio Glucose Calculated Osmolality Uric Acid Calcium Total Bilirubin AST ALT Alkaline Phosphatase Ammonia Lactate Dehydrogenase Total Protein Albumin Globulin Albumin/Globulin Ratio Urine Source Urine Color Urine Turbidity Urine pH Ur Specific [place] Urine Protein Ur Glucose (Stick) Ur Ketones (Stick) Urine Blood Urine Nitrite Urine Bilirubin Urobilinogen Dipstick Urine Leukocytes Ur Random Creatinine U Random Total Protein Protein/Creatinin Ratio Urine Opiates Screen Ur Oxycodone Screen Ur Methadone, Qual Ur Barbiturates Screen Ur Phencyclidine Scrn Ur Amphetamines Screen U Benzodiazepines Scrn Urine Cocaine Screen U Cannabinoids Screen RPR NON-REACTIVE Blood Type O POSITIVE Antibody Screen NEGATIVE 11/17/19 11/17/19 11/18/19 12:58 12:58 00:09 WBC 10.62 RBC 3.84 L Hgb 11.6 L Hct 35.7 L MCV 93.0 MCH 30.2 MCHC 32.5 L RDW Std Deviation 13.8 Plt Count 187 MPV 12.9 H Immature Gran % (Auto) 0.7 H Neut % (Auto) 78.3 H Lymph % (Auto) 15.3 L [place] % (Auto) 4.9 Eos % (Auto) 0.5 Baso % (Auto) 0.3 Immature Gran # (Auto) 0.07 H Neut # (Auto) 8.33 H Lymph # (Auto) 1.62 [place] # (Auto) 0.52 Eos # (Auto) 0.05 Baso # (Auto) 0.03 Corrected WBC (Man) PT 12.1 INR 0.89 PTT (Actin FS) 30.4 Fibrinogen 674.0 H Sodium 133 L Potassium 4.1 Chloride 100 Carbon Dioxide 18 L Anion Gap 15 BUN 13 Creatinine 0.5 Estimated GFR/1.73 m2 > 60 BUN/Creatinine Ratio 26 Glucose 75 Calculated Osmolality 265 Uric Acid Calcium 9.3 Total Bilirubin 0.66 AST 65 H ALT 98 H Alkaline Phosphatase 256 H Ammonia Lactate Dehydrogenase Total Protein 6.3 Albumin 3.1 L Globulin 3.2 Albumin/Globulin Ratio 1.0 Urine Source Urine Color Urine Turbidity Urine pH Ur Specific [place] Urine Protein Ur Glucose (Stick) Ur Ketones (Stick) Urine Blood Urine Nitrite Urine Bilirubin Urobilinogen Dipstick Urine Leukocytes Ur Random Creatinine U Random Total Protein Protein/Creatinin Ratio Urine Opiates Screen Ur Oxycodone Screen Ur Methadone, Qual Ur Barbiturates Screen Ur Phencyclidine Scrn Ur Amphetamines Screen U Benzodiazepines Scrn Urine Cocaine Screen U Cannabinoids Screen RPR Blood Type Antibody Screen 11/18/19 11/18/19 11/18/19 00:09 00:28 03:14 WBC RBC Hgb Hct MCV MCH MCHC RDW Std Deviation Plt Count MPV Immature Gran % (Auto) Neut % (Auto) Lymph % (Auto) [place] % (Auto) Eos % (Auto) Baso % (Auto) Immature Gran # (Auto) Neut # (Auto) Lymph # (Auto) [place] # (Auto) Eos # (Auto) Baso # (Auto) Corrected WBC (Man) PT INR PTT (Actin FS) Fibrinogen Sodium 136 Potassium 4.0 Chloride 100 Carbon Dioxide 19 L Anion Gap 17 BUN 12 Creatinine 0.6 Estimated GFR/1.73 m2 > 60 BUN/Creatinine Ratio 20 Glucose 79 Calculated Osmolality 271 Uric Acid 5.8 H Calcium 8.6 L Total Bilirubin 0.97 AST 66 H ALT 100 H Alkaline Phosphatase 259 H Ammonia 28 Lactate Dehydrogenase 161 Total Protein 5.7 L Albumin 3.2 L Globulin 2.5 Albumin/Globulin Ratio 1.3 Urine Source Urine Color Urine Turbidity Urine pH Ur Specific [place] Urine Protein Ur Glucose (Stick) Ur Ketones (Stick) Urine Blood Urine Nitrite Urine Bilirubin Urobilinogen Dipstick Urine Leukocytes Ur Random Creatinine 80.0 H U Random Total Protein 26.0 Protein/Creatinin Ratio 0.3 Urine Opiates Screen Ur Oxycodone Screen Ur Methadone, Qual Ur Barbiturates Screen Ur Phencyclidine Scrn Ur Amphetamines Screen U Benzodiazepines Scrn Urine Cocaine Screen U Cannabinoids Screen RPR Blood Type Antibody Screen 11/18/19 11/18/19 11/18/19 03:14 05:52 05:52 WBC 11.65 H RBC 3.79 L Hgb 11.3 L Hct 35.2 L MCV 92.9 MCH 29.8 MCHC 32.1 L RDW Std Deviation 13.9 Plt Count 170 MPV 12.7 H Immature Gran % (Auto) 0.3 Neut % (Auto) 82.0 H Lymph % (Auto) 12.3 L [place] % (Auto) 4.9 Eos % (Auto) 0.3 Baso % (Auto) 0.2 Immature Gran # (Auto) 0.04 Neut # (Auto) 9.56 H Lymph # (Auto) 1.43 [place] # (Auto) 0.57 Eos # (Auto) 0.03 Baso # (Auto) 0.02 Corrected WBC (Man) PT 12.4 INR 0.92 PTT (Actin FS) 29.3 Fibrinogen 592.0 H Sodium 135 L Potassium 3.6 Chloride 100 Carbon Dioxide 18 L Anion Gap 17 BUN 10 Creatinine 0.5 Estimated GFR/1.73 m2 > 60 BUN/Creatinine Ratio 20 Glucose 83 Calculated Osmolality 268 Uric Acid 6.2 H Calcium 8.7 L Total Bilirubin 1.10 H AST 54 H ALT 82 H Alkaline Phosphatase 241 H Ammonia Lactate Dehydrogenase Total Protein 6.0 L Albumin 2.9 L Globulin 3.1 Albumin/Globulin Ratio 0.9 Urine Source Urine Color Urine Turbidity Urine pH Ur Specific [place] Urine Protein Ur Glucose (Stick) Ur Ketones (Stick) Urine Blood Urine Nitrite Urine Bilirubin Urobilinogen Dipstick Urine Leukocytes Ur Random Creatinine U Random Total Protein Protein/Creatinin Ratio Urine Opiates Screen Ur Oxycodone Screen Ur Methadone, Qual Ur Barbiturates Screen Ur Phencyclidine Scrn Ur Amphetamines Screen U Benzodiazepines Scrn Urine Cocaine Screen U Cannabinoids Screen RPR Blood Type Antibody Screen 11/18/19 11/18/19 12:00 12:00 WBC 14.32 H RBC 3.73 L Hgb 11.2 L Hct 34.5 L MCV 92.5 MCH 30.0 MCHC 32.5 L RDW Std Deviation 13.9 Plt Count 183 MPV 13.3 H Immature Gran % (Auto) 0.4 Neut % (Auto) 86.3 H Lymph % (Auto) 8.3 L [place] % (Auto) 4.8 Eos % (Auto) 0.1 Baso % (Auto) 0.1 Immature Gran # (Auto) 0.06 H Neut # (Auto) 12.35 H Lymph # (Auto) 1.19 L [place] # (Auto) 0.69 H Eos # (Auto) 0.01 Baso # (Auto) 0.02 Corrected WBC (Man) PT INR PTT (Actin FS) Fibrinogen Sodium 134 L Potassium 3.7 Chloride 99 Carbon Dioxide 18 L Anion Gap 17 BUN 11 Creatinine 0.7 Estimated GFR/1.73 m2 > 60 BUN/Creatinine Ratio 16 Glucose 94 Calculated Osmolality 267 Uric Acid 6.7 H Calcium 8.7 L Total Bilirubin 1.29 H AST 45 H ALT 71 H Alkaline Phosphatase 236 H Ammonia Lactate Dehydrogenase Total Protein 5.7 L Albumin 2.8 L Globulin 2.9 Albumin/Globulin Ratio 1.0 Urine Source Urine Color Urine Turbidity Urine pH Ur Specific [place] Urine Protein Ur Glucose (Stick) Ur Ketones (Stick) Urine Blood Urine Nitrite Urine Bilirubin Urobilinogen Dipstick Urine Leukocytes Ur Random Creatinine U Random Total Protein Protein/Creatinin Ratio Urine Opiates Screen Ur Oxycodone Screen Ur Methadone, Qual Ur Barbiturates Screen Ur Phencyclidine Scrn Ur Amphetamines Screen U Benzodiazepines Scrn Urine Cocaine Screen U Cannabinoids Screen RPR Blood Type Antibody Screen OB Assessment & Plan (1) Intrahepatic cholestasis of in third trimester Status: Acute Plan: -
[2019-11-18] MEDS ORDERED: XYLOCAINE-MPF 2% INJ ONE (13:12)
[2019-11-18] MEDS ORDERED: SODIUM CHLORIDE 0.9% 20 ML ONE (13:13)
[2019-11-18] MEDS ORDERED: FENTANYL ONE ×2 (13:36→14:45)
[2019-11-18] MEDS ORDERED: DURAMORPH ONE (13:36)
[2019-11-18] MEDS ORDERED: ZOFRAN ONE (13:45)
[2019-11-18] MEDS ORDERED: NAROPIN 0.2% ONE (14:30)
[2019-11-18] MEDS ORDERED: VERSED ONE (14:50)
[2019-11-18] MEDS ORDERED: PERCOCET-5 PO PRN (15:49)
[2019-11-18] MEDS ORDERED: ATARAX PO PRN (15:49)
[2019-11-18] MEDS ORDERED: MYLICON PO PRN (15:49)
[2019-11-18] MEDS ORDERED: HYDROXYZINE IM PRN (15:49)
[2019-11-18] MEDS ORDERED: PITOCIN IM PRN (15:49)
[2019-11-18] MEDS ORDERED: DULCOLAX PR PRN (15:49)
[2019-11-18] MEDS ORDERED: AMBIEN PO PRN (15:49)
[2019-11-18] MEDS ORDERED: BOOSTRIX VACCINE IM ONE (15:49)
[2019-11-18] MEDS ORDERED: PITOCIN 20 UNITS/NS 20 UNITS/1,000 ML IV.SOLN IV ONE (15:49)
[2019-11-18] MEDS ORDERED: M-M-R II VACCINE SUBQ ONE (15:49)
[2019-11-18] MEDS ORDERED: SODIUM CHLORIDE 0.9% INJ PRN (15:51)
[2019-11-18] MEDS ORDERED: PHENERGAN IV PRN (15:51)
[2019-11-18] MEDS ORDERED: OFIRMEV 1000 MG/ISOTONIC SOLN 1,000 MG/100 ML BOTTLE IV ONE (16:06)
[2019-11-18] MEDS: ZOFRAN PO SCH ×2 (18:00→23:14)
[2019-11-18] MEDS: MYLICON PO SCH ×2 (18:29→21:07)
[2019-11-18 18:37] LABS: BASO# 0.02 X1000 (0.0-0.2); BASO% 0.1 % (0.0-0.8); EOS# 0.01 X1000 (0.0-0.7); EOS% 0.1 % (0.0-10.0); HEMATOCRIT 29.5 % (37.0-47.0); HEMOGLOBIN 9.3 g/dL (12.0-16.0); IMM GRAN# 0.04 X1000 (0.0-0.04); IMM GRAN% 0.3 % (0.0-0.5); LYMPH# 0.74 X1000 (1.2-3.4); LYMPH% 4.8 % (20.5-51.1); MCH 29.4 PG (27-31); MCHC 31.5 g/dL (33-37); MCV 93.4 FL (81-99); MONO# 0.73 X1000 (0.11-0.59); MONO% 4.7 % (1.7-9.3); MPV 13.1 FL (7.4-10.4); PLT 168 X1000 (130-400); RBC 3.16 XMIL (4.2-5.4); WBC 15.54 X1000 (4.8-10.8)
[2019-11-18 18:46] LABS: INR 1.03; PROTIME 13.6 Seconds (11.0-16.0)
[2019-11-18 18:54] LABS: AGAP 15; ALB/GLOB RATIO 0.9; ALBUMIN 2.2 g/dL (3.5-5.0); ALKALINE PHOSPHATASE 180 U/L (32-104); BUN 13 mg/dL (8-22); CALCIUM 8.1 mg/dL (8.8-10.2); CHLORIDE 99 mmol/L (98-107); COSMO 266; CREATININE 0.7 mg/dL (0.5-0.9); ESTIMATED GFR > 60; GLUCOSE 130 mg/dL (70-104); GOT 41 U/L (10-30); GPT 51 U/L (10-36); POTASSIUM 3.9 mmol/L (3.5-5.1); SODIUM 132 mmol/L (136-145); TCO2 18 mmol/L (25-35); TOTAL BILIRUBIN 1.45 mg/dL (0.20-1.00); TOTAL PROTEIN 4.6 g/dL (6.3-8.3)
[2019-11-18 19:46] LABS: BANDS 10 % (0-1); LYMPHS 6 % (21-51); MONO 1 % (1-9); SEGS 83 % (42-75)
[2019-11-18] MEDS ORDERED: TYLENOL PO SCH (23:00)
[2019-11-18] MEDS: PERCOCET-10 PO PRN (23:14)
[2019-11-18] MEDS: PERICOLACE PO SCH (23:21)
[2019-11-18] MEDS: TORADOL IV SCH (23:32)
--- NOTE | 2019-11-19 00:11 | OPERATIVE NOTE ---
PROCEDURE DATE: 11/18/2019 PREOPERATIVE DIAGNOSES: 1. A 39-year-old 3, para 2-0-0-2 at 37 weeks and 3 days. 2. Failure to progress. 3. Nonreassuring heart tracings. 4. Desires permanent sterilization. 5. Intrahepatic cholestasis of . 6. Preeclampsia without severe features. 7. Advanced maternal age. 8. Limited care. 9. A2 gestational diabetes. POSTOPERATIVE DIAGNOSES: 1. A 39-year-old 3, para 2-0-0-2 at 37 weeks and 3 days. 2. Failure to progress. 3. Nonreassuring heart tracings. 4. Desires permanent sterilization. 5. Intrahepatic cholestasis of . 6. Preeclampsia without severe features. 7. Advanced maternal age. 8. Limited care. 9. A2 gestational diabetes. PROCEDURE: 1. Primary low transverse section via Pfannenstiel incision. 2. Bilateral tubal ligation via [place] method. SURGEON: Ami Baig DO HOUSING CASE MANAGER: Sanjeev Randhawa DO ANESTHESIA: Epidural. FINDINGS: Viable male infant in cephalic presentation, scores 8 and 9. Normal-appearing uterus, tubes and ovaries. COMPLICATIONS: Extension of right hysterotomy during extraction. ESTIMATED BLOOD LOSS: 1000 mL INTRAVENOUS FLUIDS: 2500 mL URINE OUTPUT: 100 mL SPECIMEN: Removed bilateral fallopian tube segments. DRAINS: [place]. INDICATIONS AND CONSENT: The patient is a 39-year-old G3, P2-0-0-2 at 37 weeks and 3 days. She is being medically induced for intrahepatic cholestasis of , A2 gestational diabetes and preeclampsia without severe features. The patient received Cytotec for cervical ripening and then Pitocin for induction of labor. She progressed to 9 cm dilated; however, heart tracings were unable to tolerate Pitocin and cervix failed to continue dilating. Decision was made to proceed with a primary low transverse section. She also desires permanent sterilization in the form of a tubal ligation. Risks, benefits and alternatives to the procedure were discussed with the patient. Risks include, but are not limited to, bleeding, infection, damage to surrounding abdominal or pelvic organs, possible need for reoperation, and possible need for blood transfusion, increased risk of venous thromboembolism and even . Consent was obtained. DESCRIPTION OF PROCEDURE: The patient was taken to the operating room, where epidural anesthesia was found to be adequate. She was then prepped and draped in a normal sterile fashion in the dorsal supine position with a leftward tilt. A Pfannenstiel skin incision was then made with a scalpel, and carried through to the underlying layer of fascia with the Bovie. The fascia was incised in the midline and the incision extended laterally with Casillas scissors. The superior aspect of the fascial incision was then grasped with the Dilcia clamps, elevated and the underlying rectus muscles dissected off bluntly and sharply with Casillas scissors. Attention was then turned to the inferior aspect of this incision, which in a similar fashion was grasped, tented up with Dilcia clamps, and the rectus muscle dissected off bluntly and sharply with Casillas scissors. The rectus muscles were then in the midline and the peritoneum identified and entered bluntly. The peritoneal incision was then extended superiorly and inferiorly, with good visualization of the bladder. Edema was noted within the peritoneum and edematous peritoneal tissue was noted. The bladder blade was then inserted, and the vesicouterine peritoneum identified, grasped with pickups and entered sharply with Metzenbaum scissors. This incision was then extended laterally and a bladder flap created digitally. The bladder blade was then reinserted and lower uterine segment incised in a transverse fashion with the scalpel. Uterine incision was then extended laterally. The bladder blade was removed and the 's head delivered atraumatically. The nose and mouth were suctioned and the cord clamped and cut. The was handed off to the waiting manager of selection and assessment. Cord gases were obtained. The placenta was then removed manually. The uterus was exteriorized and cleared of all clot and debris. Two small approximately 2 cm serosal fibroids were noted on the fundus of the uterus. An extension of the right side of the hysterotomy was noted towards the cervix. The apex of this extension was identified and grasped with an Allis clamp. The extension was repaired with 0 Vicryl in a running locked fashion. The uterine incision was then repaired with 0 Vicryl in a running locked fashion. Three [id number] 0 Vicryl sutures were used at the hysterotomy to obtain hemostasis. Attention was then turned to the right fallopian tube, and the midportion was grasped with a Katerina clamp. A window was made in the mesosalpinx with the Bovie, and an approximately 2 cm segment of fallopian tube was suture-ligated using 3-0 plain. The left fallopian tube was then identified and a portion of fallopian tube removed in a similar fashion. Bleeding was noted from the inferior portion of the remaining right fallopian tube, and this was suture- ligated with a tie on a pass and hemostasis noted. The uterus was then returned to the abdomen. The gutters were cleared of all clot and debris and the hysterotomy was reinspected. Small areas of bleeding near the hysterotomy were cauterized with the Bovie, and hemostasis was noted. Vaughn was placed atop the hysterotomy repair to ensure hemostasis. The fascia was then reapproximated with 0 PDS in a running fashion. The subcutaneous fat layer was reapproximated in a running fashion with 3-0 plain. The skin was closed in subcuticular fashion with 4-0 Monocryl. The patient tolerated the procedure well. All sponge, lap and needle counts were correct x2. She received 2 g of Ancef and 500 mg of azithromycin prior to skin incision. She was taken to the recovery room in stable condition. [facility]
[2019-11-19] MEDS: PITOCIN 10 UNITS/NS 1,000 ML IV SCH ×2 (01:26→07:37)
[2019-11-19] MEDS: TORADOL IV SCH ×3 (05:34→17:28)
[2019-11-19] MEDS: ZOFRAN PO SCH ×3 (05:34→17:26)
[2019-11-19] MEDS: PERCOCET-10 PO PRN ×4 (05:35→18:18)
[2019-11-19 08:15] LABS: HEMATOCRIT 23.9 % (37.0-47.0); HEMOGLOBIN 7.6 g/dL (12.0-16.0); MCH 30.4 PG (27-31); MCHC 31.8 g/dL (33-37); MCV 95.6 FL (81-99); MPV 13.2 FL (7.4-10.4); RBC 2.5 XMIL (4.2-5.4); RDW 14.3 % (11.5-14.5); WBC 12.74 X1000 (4.8-10.8)
[2019-11-19] MEDS: MYLICON PO SCH ×4 (08:34→21:10)
--- NOTE | 2019-11-19 08:58 | OB/GYN PROGRESS NOTE ---
- Subjective G3 now P3 POD #1 S/P primary LTCS with TL. Induction for ICP, GDM - A2, and Pre-eclampsia without severe features. performed for non-reassuring FHT's and failure to progress on chart review. Patient had 1000 mL reported EBL. Hgb 11.7 down to 9.3 immediate post op and on recheck this Hgb 7.6. Patient still with powell and IV in - ordered for D/C at noon per nursing. UOP since surgery 1100 mL. Has not ambulated yet. Patient denies any CP or SOB. No lightheadedness or dizziness. No N/V. Tolerating PO. No flatus. No WALKRE or vision changes. No RUQ pain. No leg pains. Lochia minimal per patient. Bottle feeding. Patient doing well overall and no complaints. OB Physical Exam Vital Signs - 8 hr 11/19/19 04:26 11/19/19 07:13 Temperature 98 F 99.8 F H Pulse Rate 89 89 Respiratory Rate 18 20 Blood Pressure 104/60 109/72 O2 Sat by Pulse Oximetry 97 96 - CONSTITUTIONAL General Appearance: appears well, alert, no apparent distress - RESPIRATORY Respiratory: lungs clear, normal breath sounds, no respiratory distress - CARDIOVASCULAR Cardiovascular: normal peripheral pulses, regular rate, rhythm - CHEST (BREASTS) Chest/Breast: deferred - GASTROINTESTINAL (ABDOMEN) Abdominal Exam: normal bowel sounds, non tender, soft, no organomegaly (Incision C/D/I no errythema. Subcuticular closure. Well appoximated. Uterus firm at umbilicus.), other - GENITOURINARY Female Genitalia/Pelvic Exam: external exam normal, other (mild blood on pad only.) - MUSCULOSKELETAL Extremity: non-tender, no calf tenderness, other (Edema 1+ LE bilaterally) DTR: knee (R): 1+, knee (L): 1+, ankle (R): 1+, ankle (L): 1+ - PSYCHIATRIC Psych/Mental Status: normal mood/affect, oriented x 3 Active Medications Generic Name Dose Route Start Last Admin Trade Name Freq PRN Reason Stop Dose Admin Acetaminophen 650 mg 11/19/19 14:00 Tylenol PO Q4-6H PRN PRN Headache Bisacodyl 10 mg 11/18/19 15:49 Dulcolax [place] PRN PRN gas unrelieved by Mylicon Butorphanol Tartrate 2 mg 11/17/19 12:18 11/18/19 02:32 Stadol IV 2 mg Q2H PRN PRN Administration Pain (5-10 on Pain Scale) Butorphanol Tartrate 2 mg 11/17/19 12:18 Stadol IV PRN PRN Pain Butorphanol Tartrate 1 mg 11/17/19 12:18 Stadol IV Q2H PRN PRN Pain (1-4 on Pain Scale) Famotidine 20 mg 11/17/19 12:18 Pepcid IV Q12H PRN PRN GI upset or indigestion Famotidine 20 mg 11/17/19 12:18 Pepcid PO Q12H PRN PRN GI upset or indigestion Hydroxyzine HCl 50 mg 11/18/19 15:49 Atarax PO Q3-4H PRN PRN Nausea Hydroxyzine HCl 50 mg 11/18/19 15:49 Hydroxyzine IM Q3-4H PRN PRN Nausea Cefazolin Sodium/Dextrose 1 gm in 50 mls @ 100 mls/hr 11/17/19 12:18 Kefzol 1 Gm/D5w IV ONCE PRN PRN section Oxytocin/Sodium Chloride 30 unit in 500 mls @ 0 mls/hr 11/17/19 12:30 11/18/19 02:30 Pitocin 30 Units/Ns IV 2 mls/hr .Q0M LAILA Administration As Directed Lactated Ringer's 1,000 mls @ 0 mls/hr 11/18/19 01:15 11/18/19 10:41 Lr IV 125 mls/hr .Q0M LAILA Administration As Directed Fentanyl/Bupivacaine/Sodium Chlor 250 mls @ 0 mls/hr 11/18/19 07:00 11/18/19 07:55 Lvevfieu-Fkzlp-Wz 500 Mcg-0.125% EPIDURAL 10 mls/hr DIRECTED LAILA Administration As Directed Lactated Ringer's 1,000 mls @ 125 mls/hr 11/19/19 15:49 Lr IV .Q8H LAILA Oxytocin/Sodium Chloride 1,000 mls @ 125 mls/hr 11/18/19 16:00 11/19/19 07:37 Pitocin 10 Units/Ns IV 11/19/19 15:44 125 mls/hr .Q8H LAILA Administration Ibuprofen 800 mg 11/18/19 15:49 Motrin PO Q8H PRN PRN Pain Ketorolac Tromethamine 30 mg 11/18/19 23:15 11/19/19 05:34 Toradol IV 30 mg Q6H LAILA Administration Lidocaine HCl 30 ml 11/18/19 00:17 Xylocaine-Mpf 1% INJ PRN PRN delivery Mineral Oil 30 ml 11/18/19 00:17 Mineral Oil TOP PRN PRN delivery Ondansetron HCl 4 mg 11/17/19 12:18 Zofran IV PRN PRN Nausea Ondansetron HCl 4 mg 11/18/19 16:00 11/19/19 05:34 Zofran PO 4 mg Q6H LAILA Administration Oxycodone/Acetaminophen 1 each 11/18/19 15:49 11/19/19 05:35 Percocet-10 PO 1 each Q3-4H PRN PRN Administration Pain (7-10 on Pain Scale) Oxycodone/Acetaminophen 1 each 11/18/19 15:49 Percocet-5 PO Q3-4H PRN PRN Pain (1-6 on Pain Scale) Oxytocin 20 unit 11/18/19 15:49 Pitocin IM PRN PRN Severe bleeding Promethazine HCl 12.5 mg 11/18/19 15:51 Phenergan IV Q4H PRN PRN Nausea And Vomiting Senna/Docusate Sodium 1 each 11/18/19 21:00 11/18/19 23:21 Pericolace PO Not Given QHS LAILA Simethicone 80 mg 11/18/19 15:49 Mylicon PO PRN PRN GAS Simethicone 80 mg 11/18/19 18:00 11/19/19 08:34 Mylicon PO 80 mg PC + HS LAILA Administration Sodium Chloride 10 ml 11/18/19 15:51 Sodium Chloride 0.9% INJ PRN PRN Dilute Phenergan for IV use Terbutaline Sulfate 0.25 mg 11/17/19 12:18 Brethine SUBQ PRN PRN tachysystole/hypertonus Zolpidem Tartrate 10 mg 11/18/19 15:49 Ambien PO HS PRN PRN Sleep Laboratory Results - last 24 hr 11/18/19 11/18/19 11/18/19 12:00 12:00 18:07 WBC 14.32 H RBC 3.73 L Hgb 11.2 L Hct 34.5 L MCV 92.5 MCH 30.0 MCHC 32.5 L RDW Std Deviation 13.9 Plt Count 183 MPV 13.3 H Immature Gran % (Auto) 0.4 Neut % (Auto) 86.3 H Lymph % (Auto) 8.3 L [place] % (Auto) 4.8 Eos % (Auto) 0.1 Baso % (Auto) 0.1 Immature Gran # (Auto) 0.06 H Neut # (Auto) 12.35 H Lymph # (Auto) 1.19 L [place] # (Auto) 0.69 H Eos # (Auto) 0.01 Baso # (Auto) 0.02 Segmented Neutrophils Band Neutrophils Lymphocytes Monocytes PT INR PTT (Actin FS) Fibrinogen Sodium 134 L 132 L Potassium 3.7 3.9 Chloride 99 99 Carbon Dioxide 18 L 18 L Anion Gap 17 15 BUN 11 13 Creatinine 0.7 0.7 Estimated GFR/1.73 m2 > 60 > 60 BUN/Creatinine Ratio 16 19 Glucose 94 130 H Calculated Osmolality 267 266 Uric Acid 6.7 H Calcium 8.7 L 8.1 L Total Bilirubin 1.29 H 1.45 H AST 45 H 41 H ALT 71 H 51 H Alkaline Phosphatase 236 H 180 H Total Protein 5.7 L 4.6 L Albumin 2.8 L 2.2 L Globulin 2.9 2.4 Albumin/Globulin Ratio 1.0 0.9 11/18/19 11/18/19 11/19/19 18:07 18:07 07:28 WBC 15.54 H 12.74 H RBC 3.16 L 2.50 L Hgb 9.3 L D 7.6 L D Hct 29.5 L 23.9 L MCV 93.4 95.6 MCH 29.4 30.4 MCHC 31.5 L 31.8 L RDW Std Deviation 14.0 14.3 Plt Count 168 153 MPV 13.1 H 13.2 H Immature Gran % (Auto) 0.3 Neut % (Auto) 90.0 H Lymph % (Auto) 4.8 L [place] % (Auto) 4.7 Eos % (Auto) 0.1 Baso % (Auto) 0.1 Immature Gran # (Auto) 0.04 Neut # (Auto) 14.00 H Lymph # (Auto) 0.74 L [place] # (Auto) 0.73 H Eos # (Auto) 0.01 Baso # (Auto) 0.02 Segmented Neutrophils 83 H Band Neutrophils 10 H Lymphocytes 6 L Monocytes 1 PT 13.6 INR 1.03 PTT (Actin FS) 31.0 Fibrinogen 473.0 Sodium Potassium Chloride Carbon Dioxide Anion Gap BUN Creatinine Estimated GFR/1.73 m2 BUN/Creatinine Ratio Glucose Calculated Osmolality Uric Acid Calcium Total Bilirubin AST ALT Alkaline Phosphatase Total Protein Albumin Globulin Albumin/Globulin Ratio OB Assessment & Plan (1) Status post delivery Status: Acute Plan: Doing well overall, no c/o. Powell out at noon. HLIV ordered. Increase ambulation. May shower. SCD's on while in bed. Pain controlled with Percocet and toradol. Rubella NON-IMMUNE - will need vaccinated prior to discharge. TL done at time of C/S. (2) Anemia, Status: Acute Plan: EBL 1000mL for surgery. Hgb this am down to 7.6 from 9.3 check post surgical. Patient with good UOP 1100 mL since surgery. Pulse 80-90. BP stable. Not been out of bed yet but denies lightheadedness, dizziness, WALKER, CP or SOB. Overall felling "good." FeSO4 325mg po BID ordered. Once ambulating if symptomatic/orthostatic will need to consider transfusion based on symptoms - discussed with patient. (3) Intrahepatic cholestasis of in third trimester Status: Acute Plan: LFT's reviewed AST 65 and ALT 98 on admit increased to 66 and 100 during and post check down to 54 and 82. (4) GDM, class A2 Status: Acute Plan: Metformin D/C'd. BS reviewed. Discussed with patient will need 2 hour GTT at 6 week post check.
[2019-11-19] MEDS: FERROUS SULFATE PO SCH ×2 (09:48→21:10)
[2019-11-19] MEDS ORDERED: TYLENOL PO PRN (14:00)
[2019-11-19] MEDS ORDERED: LR 1,000 ML IV SCH (15:49)
[2019-11-19] MEDS: MOTRIN PO PRN (20:03)
[2019-11-19] MEDS: PERICOLACE PO SCH (21:10)
[2019-11-20] MEDS: PERCOCET-10 PO PRN ×3 (00:19→08:13)
[2019-11-20] MEDS: MOTRIN PO PRN (04:35)
[2019-11-20] MEDS: FERROUS SULFATE PO SCH ×2 (08:12→21:01)
[2019-11-20] MEDS: MYLICON PO SCH ×4 (08:15→21:02)
--- NOTE | 2019-11-20 10:49 | OB/GYN PROGRESS NOTE ---
- Subjective POD #2 S/P primary LTCS with TL. Induction for ICP, GDM - A2, and Pre- eclampsia without severe features. performed for non-reassuring FHT's and failure to progress on chart review. Patient had 1000 mL reported EBL. Hgb 11.7 down to 9.3 immediate post op and on recheck 11/19/19 Hgb 7.6. Was ambulating yesterday and having no problems. IV d/c'd/ Voiding without difficulty. Today at around 9 or 9:30 am states been dizzy with ambulation and states dizzy now while laying in bed. "feel really tired today too." Ate breakfast fine this morning but states nausea as well since had breakfast but no emesis. Did have percocet at around 8:30 am. Patient denies any CP or SOB. No lightheadedness. C/O back itching and sweating. Afebrile on review of vitals. Positive flatus. No BM. No WALKER or vision changes. No RUQ pain. No leg pains. Lochia minimal per patient. Bottle feeding. OB Physical Exam Vital Signs - 8 hr 11/20/19 04:30 11/20/19 08:00 Temperature 97.5 F L 97.7 F Pulse Rate 86 85 Respiratory Rate 18 18 Blood Pressure 119/80 137/86 O2 Sat by Pulse Oximetry 99 97 - CONSTITUTIONAL General Appearance: appears well, alert, no apparent distress - EYES Eyes: PERRL/EOMI (NO nystagmus) - RESPIRATORY Respiratory: lungs clear, normal breath sounds - CARDIOVASCULAR Cardiovascular: normal peripheral pulses, regular rate, rhythm (pulse 82 at present while laying in bed.) - CHEST (BREASTS) Chest/Breast: deferred - GASTROINTESTINAL (ABDOMEN) Abdominal Exam: normal bowel sounds, non tender, soft, other (Appropriately tender on exam. NO rebound or guarding. Incision C/D/I - subcuticular closure. No erythema and no drainage. Uterus firm below umbilicus.) - GENITOURINARY Female Genitalia/Pelvic Exam: external exam normal, other (scant blood on pad.) - MUSCULOSKELETAL Back Exam: normal inspection Extremity: non-tender, no calf tenderness DTR: knee (R): 1+, knee (L): 1+, ankle (R): 1+ (no clonus), ankle (L): 1+ (no clonus) - PSYCHIATRIC Psych/Mental Status: normal mood/affect, oriented x 3 Active Medications Generic Name Dose Route Start Last Admin Trade Name Freq PRN Reason Stop Dose Admin Acetaminophen 650 mg 11/19/19 14:00 Tylenol PO Q4-6H PRN PRN Headache Bisacodyl 10 mg 11/18/19 15:49 Dulcolax [place] PRN PRN gas unrelieved by Mylicon Butorphanol Tartrate 2 mg 11/17/19 12:18 11/18/19 02:32 Stadol IV 2 mg Q2H PRN PRN Administration Pain (5-10 on Pain Scale) Butorphanol Tartrate 2 mg 11/17/19 12:18 Stadol IV PRN PRN Pain Butorphanol Tartrate 1 mg 11/17/19 12:18 Stadol IV Q2H PRN PRN Pain (1-4 on Pain Scale) Famotidine 20 mg 11/17/19 12:18 Pepcid IV Q12H PRN PRN GI upset or indigestion Famotidine 20 mg 11/17/19 12:18 Pepcid PO Q12H PRN PRN GI upset or indigestion Ferrous Sulfate 325 mg 11/19/19 09:00 11/20/19 08:12 Ferrous Sulfate PO 325 mg BID LAILA Administration Hydroxyzine HCl 50 mg 11/18/19 15:49 Atarax PO Q3-4H PRN PRN Nausea Hydroxyzine HCl 50 mg 11/18/19 15:49 Hydroxyzine IM Q3-4H PRN PRN Nausea Cefazolin Sodium/Dextrose 1 gm in 50 mls @ 100 mls/hr 11/17/19 12:18 Kefzol 1 Gm/D5w IV ONCE PRN PRN section Oxytocin/Sodium Chloride 30 unit in 500 mls @ 0 mls/hr 11/17/19 12:30 11/18/19 02:30 Pitocin 30 Units/Ns IV 2 mls/hr .Q0M LAILA Administration As Directed Lactated Ringer's 1,000 mls @ 0 mls/hr 11/18/19 01:15 11/18/19 10:41 Lr IV 125 mls/hr .Q0M LAILA Administration As Directed Fentanyl/Bupivacaine/Sodium Chlor 250 mls @ 0 mls/hr 11/18/19 07:00 11/18/19 07:55 Sedsjalz-Hruvy-Ex 500 Mcg-0.125% EPIDURAL 10 mls/hr DIRECTED LAILA Administration As Directed Lactated Ringer's 1,000 mls @ 125 mls/hr 11/19/19 15:49 Lr IV .Q8H LAILA Ibuprofen 800 mg 11/18/19 15:49 11/20/19 04:35 Motrin PO 800 mg Q8H PRN PRN Administration Pain Lidocaine HCl 30 ml 11/18/19 00:17 Xylocaine-Mpf 1% INJ PRN PRN delivery Mineral Oil 30 ml 11/18/19 00:17 Mineral Oil TOP PRN PRN delivery Ondansetron HCl 4 mg 11/17/19 12:18 Zofran IV PRN PRN Nausea Oxycodone/Acetaminophen 1 each 11/18/19 15:49 11/20/19 08:13 Percocet-10 PO 1 each Q3-4H PRN PRN Administration Pain (7-10 on Pain Scale) Oxycodone/Acetaminophen 1 each 11/18/19 15:49 Percocet-5 PO Q3-4H PRN PRN Pain (1-6 on Pain Scale) Oxytocin 20 unit 11/18/19 15:49 Pitocin IM PRN PRN Severe bleeding Promethazine HCl 12.5 mg 11/18/19 15:51 Phenergan IV Q4H PRN PRN Nausea And Vomiting Senna/Docusate Sodium 1 each 11/18/19 21:00 11/19/19 21:10 Pericolace PO 1 each QHS LAILA Administration Simethicone 80 mg 11/18/19 15:49 Mylicon PO PRN PRN GAS Simethicone 80 mg 11/18/19 18:00 11/19/19 21:10 Mylicon PO 80 mg PC + HS LAILA Administration Sodium Chloride 10 ml 11/18/19 15:51 Sodium Chloride 0.9% INJ PRN PRN Dilute Phenergan for IV use Terbutaline Sulfate 0.25 mg 11/17/19 12:18 Brethine SUBQ PRN PRN tachysystole/hypertonus Zolpidem Tartrate 10 mg 11/18/19 15:49 Ambien PO HS PRN PRN Sleep OB Assessment & Plan (1) Status post delivery Status: Acute Plan: POD #2 continue PP care/management Naseated and Dizzy - work up in progress. bottle feeding. (2) Anemia, Status: Acute Plan: Hgb 7.6 yesterday but VSS - no tachycardia and no hypotension. Was ambulating ok yesterday. Starting at around 9 am today dizziness with ambulation and with lying in bed and states feeling very tired. Nausea since breakfast but tolerated breakfast fine. No emesis. Got Percoet around 8:30 am per nurses. BS + and abdomen soft, ND/NT. Flatus + and no BM. Pulse at present 82 and BP 137/86 - BP reviewed 110/67. 119/80 prior. Symptoms due to anemia vs narcotic at this point. Considering 7.6 hgb yesterday have to address assumption of anemia as cause. Zofran for nausea. Change to [place] dicontinue percocet. Recheck CBC- ordered T&C for 2 units - discussed with patient as c/o dizzy and fatigue that is affecting her possibility of blood transfusion and risks and benefits of transfusion. States understanding and will accept blood products. Citizen Of [place] speaking primary language but speaks romansh as well. (3) Intrahepatic cholestasis of in third trimester Status: Acute Plan: CMP ordered due to nausea and ICP - as checking CBC now. Last check LFT's trending downward. (4) GDM, class A2 Status: Acute Plan: 2 hour GTT at 6 week PP visit.
[2019-11-20 11:56] LABS: AGAP 11; ALB/GLOB RATIO 0.8; ALBUMIN 2.2 g/dL (3.5-5.0); ALKALINE PHOSPHATASE 144 U/L (32-104); BUN 12 mg/dL (8-22); CALCIUM 7.7 mg/dL (8.8-10.2); CHLORIDE 103 mmol/L (98-107); COSMO 273; CREATININE 0.6 mg/dL (0.5-0.9); ESTIMATED GFR > 60; GLUCOSE 92 mg/dL (70-104); GOT 38 U/L (10-30); GPT 37 U/L (10-36); POTASSIUM 3.7 mmol/L (3.5-5.1); SODIUM 137 mmol/L (136-145); TCO2 23 mmol/L (25-35); TOTAL BILIRUBIN 0.43 mg/dL (0.20-1.00); TOTAL PROTEIN 4.9 g/dL (6.3-8.3)
[2019-11-20 11:57] LABS: BASO# 0.03 X1000 (0.0-0.2); BASO% 0.2 % (0.0-0.8); EOS# 0.23 X1000 (0.0-0.7); EOS% 1.7 % (0.0-10.0); HEMATOCRIT 23.1 % (37.0-47.0); HEMOGLOBIN 7.1 g/dL (12.0-16.0); IMM GRAN# 0.32 X1000 (0.0-0.04); IMM GRAN% 2.4 % (0.0-0.5); LYMPH# 1.82 X1000 (1.2-3.4); LYMPH% 13.7 % (20.5-51.1); MCH 29.2 PG (27-31); MCHC 30.7 g/dL (33-37); MCV 95.1 FL (81-99); MONO# 0.74 X1000 (0.11-0.59); MONO% 5.6 % (1.7-9.3); MPV 12.2 FL (7.4-10.4); NEUT# 10.19 X1000 (1.4-6.5); NEUT% 76.4 % (42.2-75.2); PLT 180 X1000 (130-400); RBC 2.43 XMIL (4.2-5.4); RDW 14.2 % (11.5-14.5); WBC 13.33 X1000 (4.8-10.8)
[2019-11-20] MEDS ORDERED: TUMS PO ONE (11:59)
[2019-11-20] MEDS ORDERED: TYLENOL PO ONE ×2 (12:03→20:17)
[2019-11-20] MEDS ORDERED: BENADRYL IV ONE (12:03)
--- NOTE | 2019-11-20 12:21 | OB/GYN PROGRESS NOTE ---
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: Vital Signs - 24 hr 11/19/19 16:03 11/19/19 19:58 11/20/19 00:14 Temperature 96.7 F L 97.5 F L 96.6 F L Pulse Rate 97 H 96 H 81 Respiratory Rate 16 22 20 Blood Pressure 118/72 130/73 110/67 O2 Sat by Pulse Oximetry 100 99 100 11/20/19 04:30 11/20/19 08:00 Temperature 97.5 F L 97.7 F Pulse Rate 86 85 Respiratory Rate 18 18 Blood Pressure 119/80 137/86 O2 Sat by Pulse Oximetry 99 97 Laboratory Results - last 24 hr 11/20/19 11/20/19 11:26 11:26 WBC 13.33 H RBC 2.43 L Hgb 7.1 L Hct 23.1 L MCV 95.1 MCH 29.2 MCHC 30.7 L RDW Std Deviation 14.2 Plt Count 180 MPV 12.2 H Immature Gran % (Auto) 2.4 H Neut % (Auto) 76.4 H Lymph % (Auto) 13.7 L [place] % (Auto) 5.6 Eos % (Auto) 1.7 Baso % (Auto) 0.2 Immature Gran # (Auto) 0.32 H Neut # (Auto) 10.19 H Lymph # (Auto) 1.82 [place] # (Auto) 0.74 H Eos # (Auto) 0.23 Baso # (Auto) 0.03 Sodium 137 Potassium 3.7 Chloride 103 Carbon Dioxide 23 L Anion Gap 11 BUN 12 Creatinine 0.6 Estimated GFR/1.73 m2 > 60 BUN/Creatinine Ratio 20 Glucose 92 Calculated Osmolality 273 Calcium 7.7 L Total Bilirubin 0.43 AST 38 H ALT 37 H Alkaline Phosphatase 144 H Total Protein 4.9 L Albumin 2.2 L Globulin 2.7 Albumin/Globulin Ratio 0.8 SCD's on. Still with c/o dizziness. Zofan IV was given and nausea has improved. Labwork reviewed. AST and ALT down to 38 and 37 respectively. Calcium 7.7 low-- Tums 1000mg po now. Hgb 7.1 from 7.6. Will transfuse 1 unit PRBC. Pre-treat with Benadryl 25mg IV, 650mg po tylenol - percocet x 1 approximately 8:30am. Will plan for 10 mg Lasix IV post transfusion and then recheck of H&H 2 hours post transfusion. Will reassess symptoms and hgb and if necessary give 2nd unit.
[2019-11-20] MEDS: NS 250 ML IV SCH ×2 (13:31→21:18)
[2019-11-20] MEDS ORDERED: LASIX IV ONE (16:12)
[2019-11-20 19:49] LABS: HEMATOCRIT 23.4 % (37.0-47.0); HEMOGLOBIN 7.5 g/dL (12.0-16.0)
[2019-11-20] MEDS ORDERED: BENADRYL PO ONE (20:17)
[2019-11-20] MEDS: PERICOLACE PO SCH (21:01)
[2019-11-21] MEDS: NS 250 ML IV SCH (00:38)
[2019-11-21] MEDS: MOTRIN PO PRN ×2 (02:18→13:23)
[2019-11-21] MEDS: NORCO-5 PO PRN ×2 (02:18→05:53)
[2019-11-21 06:22] LABS: BASO# 0.07 X1000 (0.0-0.2); BASO% 0.6 % (0.0-0.8); EOS# 0.25 X1000 (0.0-0.7); EOS% 2.3 % (0.0-10.0); HEMATOCRIT 28.5 % (37.0-47.0); HEMOGLOBIN 9.3 g/dL (12.0-16.0); IMM GRAN# 0.82 X1000 (0.0-0.04); IMM GRAN% 7.5 % (0.0-0.5); LYMPH# 2.06 X1000 (1.2-3.4); LYMPH% 18.8 % (20.5-51.1); MCH 29.9 PG (27-31); MCHC 32.6 g/dL (33-37); MCV 91.6 FL (81-99); MONO% 4.6 % (1.7-9.3); MPV 12.3 FL (7.4-10.4); NEUT# 7.24 X1000 (1.4-6.5); NEUT% 66.2 % (42.2-75.2); PLT 202 X1000 (130-400); RBC 3.11 XMIL (4.2-5.4); RDW 14.5 % (11.5-14.5); WBC 10.94 X1000 (4.8-10.8)
--- NOTE | 2019-11-21 07:26 | OB/GYN PROGRESS NOTE ---
- Subjective 39 yo POD#3 s/p 1LTCS, BTL at 37w3d with ICP, PreE without severe features, A2-GDM, AMA, limited PNC, acute blood loss anemia Patient seen and examined. No complaints this AM. Pain is controlled. She received 2 units of blood overnight due to symptomatic anemia. Hgb aparna appropriately from 7.1 to 9.3. She denies any dizziness/lightheadedness. She notes minimal lochia. She is voiding without difficulty and passing flatus. She has not had a BM yet. She is tolerating a regular diet, denies nausea/vomiting. She denies headache, vision changes, chest pain, SOB. She states itching has resolved. Baby is doing well in the nursery and she is bottle feeding. OB Physical Exam Vital Signs - 8 hr 11/21/19 00:20 11/21/19 05:00 11/21/19 05:54 Temperature 97 F L 97.2 F L Pulse Rate 64 66 66 Respiratory Rate 16 18 18 Blood Pressure 133/76 160/77 146/83 O2 Sat by Pulse Oximetry 100 98 98 - CONSTITUTIONAL General Appearance: appears well, alert, no apparent distress - HEAD, EARS, NOSE, MOUTH & THROAT HENMT: normocephalic/atraumatic - RESPIRATORY Respiratory: lungs clear, normal breath sounds, no respiratory distress - CARDIOVASCULAR Cardiovascular: normal peripheral pulses, regular rate, rhythm - GASTROINTESTINAL (ABDOMEN) Abdominal Exam: normal bowel sounds, soft, other (ATTP, fundus firm/below umbilicus. Skin incision C/D/I with dermabond.) - MUSCULOSKELETAL Extremity: normal range of motion, non-tender DTR: knee (R): 2+, knee (L): 2+ - SKIN Integumentary: normal color - PSYCHIATRIC Psych/Mental Status: normal mood/affect Active Medications Generic Name Dose Route Start Last Admin Trade Name Freq PRN Reason Stop Dose Admin Acetaminophen 650 mg 11/19/19 14:00 Tylenol PO Q4-6H PRN PRN Headache Hydrocodone Bitart/Acetaminophen 1 each 11/20/19 11:24 11/21/19 05:53 [place]-5 PO 1 each Q4H PRN PRN Administration Pain Bisacodyl 10 mg 11/18/19 15:49 Dulcolax [place] PRN PRN gas unrelieved by Mylicon Butorphanol Tartrate 2 mg 11/17/19 12:18 11/18/19 02:32 Stadol IV 2 mg Q2H PRN PRN Administration Pain (5-10 on Pain Scale) Butorphanol Tartrate 2 mg 11/17/19 12:18 Stadol IV PRN PRN Pain Butorphanol Tartrate 1 mg 11/17/19 12:18 Stadol IV Q2H PRN PRN Pain (1-4 on Pain Scale) Famotidine 20 mg 11/17/19 12:18 Pepcid IV Q12H PRN PRN GI upset or indigestion Famotidine 20 mg 11/17/19 12:18 Pepcid PO Q12H PRN PRN GI upset or indigestion Ferrous Sulfate 325 mg 11/19/19 09:00 11/20/19 21:01 Ferrous Sulfate PO 325 mg BID LAILA Administration Hydroxyzine HCl 50 mg 11/18/19 15:49 Atarax PO Q3-4H PRN PRN Nausea Hydroxyzine HCl 50 mg 11/18/19 15:49 Hydroxyzine IM Q3-4H PRN PRN Nausea Cefazolin Sodium/Dextrose 1 gm in 50 mls @ 100 mls/hr 11/17/19 12:18 Kefzol 1 Gm/D5w IV ONCE PRN PRN section Oxytocin/Sodium Chloride 30 unit in 500 mls @ 0 mls/hr 11/17/19 12:30 11/18/19 02:30 Pitocin 30 Units/Ns IV 2 mls/hr .Q0M LAILA Administration As Directed Fentanyl/Bupivacaine/Sodium Chlor 250 mls @ 0 mls/hr 11/18/19 07:00 11/18/19 07:55 Phlasldx-Efaoh-Zw 500 Mcg-0.125% EPIDURAL 10 mls/hr DIRECTED LAILA Administration As Directed Ibuprofen 800 mg 11/18/19 15:49 11/21/19 02:18 Motrin PO 800 mg Q8H PRN PRN Administration Pain Lidocaine HCl 30 ml 11/18/19 00:17 Xylocaine-Mpf 1% INJ PRN PRN delivery Mineral Oil 30 ml 11/18/19 00:17 Mineral Oil TOP PRN PRN delivery Ondansetron HCl 4 mg 11/17/19 12:18 11/20/19 11:47 Zofran IV 4 mg PRN PRN Administration Nausea Oxytocin 20 unit 11/18/19 15:49 Pitocin IM PRN PRN Severe bleeding Promethazine HCl 12.5 mg 11/18/19 15:51 Phenergan IV Q4H PRN PRN Nausea And Vomiting Senna/Docusate Sodium 1 each 11/18/19 21:00 11/20/19 21:01 Pericolace PO 1 each QHS LAILA Administration Simethicone 80 mg 11/18/19 15:49 Mylicon PO PRN PRN GAS Simethicone 80 mg 11/18/19 18:00 11/20/19 21:02 Mylicon PO 80 mg PC + HS LAILA Administration Sodium Chloride 10 ml 11/18/19 15:51 Sodium Chloride 0.9% INJ PRN PRN Dilute Phenergan for IV use Terbutaline Sulfate 0.25 mg 11/17/19 12:18 Brethine SUBQ PRN PRN tachysystole/hypertonus Zolpidem Tartrate 10 mg 11/18/19 15:49 Ambien PO HS PRN PRN Sleep Laboratory Results - last 24 hr 11/20/19 11/20/19 11/20/19 11:26 11:26 11:26 WBC 13.33 H RBC 2.43 L Hgb 7.1 L Hct 23.1 L MCV 95.1 MCH 29.2 MCHC 30.7 L RDW Std Deviation 14.2 Plt Count 180 MPV 12.2 H Immature Gran % (Auto) 2.4 H Neut % (Auto) 76.4 H Lymph % (Auto) 13.7 L [place] % (Auto) 5.6 Eos % (Auto) 1.7 Baso % (Auto) 0.2 Immature Gran # (Auto) 0.32 H Neut # (Auto) 10.19 H Lymph # (Auto) 1.82 [place] # (Auto) 0.74 H Eos # (Auto) 0.23 Baso # (Auto) 0.03 Sodium 137 Potassium 3.7 Chloride 103 Carbon Dioxide 23 L Anion Gap 11 BUN 12 Creatinine 0.6 Estimated GFR/1.73 m2 > 60 BUN/Creatinine Ratio 20 Glucose 92 Calculated Osmolality 273 Calcium 7.7 L Total Bilirubin 0.43 AST 38 H ALT 37 H Alkaline Phosphatase 144 H Total Protein 4.9 L Albumin 2.2 L Globulin 2.7 Albumin/Globulin Ratio 0.8 Blood Type O POSITIVE Antibody Screen NEGATIVE Crossmatch See Detail 11/20/19 11/21/19 19:16 05:12 WBC 10.94 H RBC 3.11 L Hgb 7.5 L 9.3 L D Hct 23.4 L 28.5 L D MCV 91.6 MCH 29.9 MCHC 32.6 L RDW Std Deviation 14.5 Plt Count 202 MPV 12.3 H Immature Gran % (Auto) 7.5 H Neut % (Auto) 66.2 Lymph % (Auto) 18.8 L [place] % (Auto) 4.6 Eos % (Auto) 2.3 Baso % (Auto) 0.6 Immature Gran # (Auto) 0.82 H Neut # (Auto) 7.24 H Lymph # (Auto) 2.06 [place] # (Auto) 0.50 Eos # (Auto) 0.25 Baso # (Auto) 0.07 Sodium Potassium Chloride Carbon Dioxide Anion Gap BUN Creatinine Estimated GFR/1.73 m2 BUN/Creatinine Ratio Glucose Calculated Osmolality Calcium Total Bilirubin AST ALT Alkaline Phosphatase Total Protein Albumin Globulin Albumin/Globulin Ratio Blood Type Antibody Screen Crossmatch OB Assessment & Plan (1) Anemia, Status: Acute Plan: s/p 2 u PRBCs overnight (2) Status post delivery Status: Acute Plan: 39 yo POD#3 s/p 1LTCS, BTL at 37w3d with ICP, PreE without severe features, A2-GDM, AMA, limited PNC, acute blood loss anemia 1. HD stable, afebrile, s/p 2 u PRBCs last night. Hgb with appropriate rise from 7.1>9.3. She denies any dizziness/lightheadedness. 2. Encourage ambulation today 3. Routine PP care 4. Bottlefeeding 5. Stool softeners PRN for constipation 6. Monitor BP and for signs of severe symptoms of PreE
[2019-11-21] MEDS: FERROUS SULFATE PO SCH (09:11)
[2019-11-21] MEDS: MYLICON PO SCH ×2 (09:11→13:23)
[2019-11-21 09:25] LABS: BANDS 6 % (0-1); EOS 2 % (1-10); LYMPHS 20 % (21-51); MONO 12 % (1-9); NRBC 1 % (0-0); SEGS 52 % (42-75)
[2019-11-21 13:53] VITALS: BP 152/81
--- NOTE | 2019-11-21 21:55 | DISCHARGE SUMMARY ---
ADMISSION DATE: 11/17/2019 DISCHARGE DATE: 11/21/2019 ADMITTING PHYSICIAN: Mary Baig. CONDITION ON DISCHARGE: Stable. FINAL DIAGNOSIS: 1. 39-year-old G3, P3-0-0-3 postop day #3 status post primary low transverse section with bilateral tubal ligation secondary to failure to progress and non-reassuring heart tracings . 2. Intrahepatic cholestasis of . 3. Preeclampsia without severe features. 4. Advanced maternal age. 5. A2 gestational diabetes. 6. Acute blood loss anemia. 7. History of ASCUS Pap smear in 2019. PROCEDURES PERFORMED: Primary low transverse section with bilateral tubal ligation on 11/18/2019. HOSPITAL COURSE: The patient was admitted to labor and delivery on 11/17 for medical induction of labor secondary to intrahepatic cholestasis of and A2 gestational diabetes. During induction she did have elevated blood pressures and preeclampsia labs were obtained which revealed preeclampsia without severe features. Her blood pressure never required treatment and she never complained of any signs or symptoms of severe features of preeclampsia. She underwent cervical ripening with Cytotec and induction of labor with Pitocin. She did slowly progress to 9 cm however she did not change past 9 cm and heart tracings during induction were non- reassuring. Decision was made to proceed with primary low transverse section. This plan was discussed with patient. She also desired a bilateral tubal ligation should she require section and this is also completed. She underwent a primary low transverse section on 11/18. She had a routine postoperative course. On postop day 2 hemoglobin was noted to be 7.1 and patient complained of dizziness and lightheadedness. She received 2 units of packed red blood cells and hemoglobin [place] appropriately to 9.3. Her blood pressures remained normotensive in the course and her blood sugars were within normal limits. Upon presentation for induction her liver enzymes are elevated, AST of 65 and ALT was 98, these had decrease in the period. AST 38 and ALT is 37. Prior to induction she complained of intense itching on the palms and her soles. She states this has resolved in the period. Bile acids were obtained prior to delivery and they were 45. On postop day #3 she was deemed stable for discharge and was requesting discharge. She is meeting her postoperative milestones. She is ambulating and voiding without difficulty. She is tolerating a normal diet and she denies any nausea or vomiting. She is passing flatus. She notes minimal vaginal bleeding. Will discharge home in stable condition and plan to perform diabetes screening at her 6 week visit with a 2 hour GTT. 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 Will follow up in 1 week for incision check. DISCHARGE MEDICATIONS: 1. [place] 5/325 mg p.o. q.4 hours p.r.n. pain. 2. Motrin 800 mg p.o. q.8 hours p.r.n. pain. 3. Madeline-Colace 1 tab p.o. at bedtime p.r.n. constipation. 4. Ferrous sulfate 325 mg p.o. b.i.d. FOLLOWUP APPOINTMENTS: Patient has an appointment on December 02 at 10:45 for an incision check. FOLLOWUP INSTRUCTIONS: Patient instructed to notify doctor with temperature greater than 100.4 degrees Fahrenheit, vaginal bleeding greater than a pad an hour, foul-smelling vaginal discharge, severe abdominal pain, or persistent dizziness and lightheadedness. She voiced understanding.
== END 2019-11-21 13:50 | disposition home or self-care (01) | DRG 783 ==
LOC: LD 12:00
PROVIDERS: ADMIT Student in an Organized Health Care Education/Training Program; ATTEND Student in an Organized Health Care Education/Training Program